=== PATIENT | female | born 1980 | race Caucasian/White ===

== ENCOUNTER 2022-02-22 16:14 | Outpatient (CLI) | payer BC, SELFPAY ==
--- OUTSIDE RECORDS SUMMARY | 2022-02-22 16:19 | XMS_ITS ---
:1980 Author Care Team Providers Name Role Phone NAKUL CURRY MD Primary Care Provider [phone] Allergies Code Code System Name Reaction Severity Status Onset NKDA ? Medications Name Status Start Date Stop Date ? ? compounded medication Completed ? 01/05/2020 5mg Valium compounded as a suppository 1 Supp per vagina QHS at bedtime compounded medication Completed ? 01/05/2020 5mg Valium compounded as a suppository 1 Supp per vagina QHS at bedtime escitalopram 10 mg tablet Active ? Not av ailable lorazepam 0.5 mg tablet Completed ? 11/19/19 20 mirtazapine 7.5 mg tablet Active ? Not av ailable nitrofurantoin monohydrate/macrocrystals 100 mg capsule Complete d ? 11/19/2019 sertraline 50 mg tablet Completed ? 11/19/19 20 Problems None recorded. Procedures Date Name Performed by ? 02/06/2010 Colonoscopy Information not avai lable ? Breast Procedure Information not avai lable ? Extraction of [place] Tooth Information n ot available ? Tubal Ligation Information not avai lable ? Section Information not avai lable 12/09/2019 CT, Urogram [facility] [address] [facility] [address] [place] [address] (Work Place) Notes: Flex sig, remove anal fissure Results Lab Results Date Name Specimen Result Interpretation Description Value Range Status Address ? 01/05/2020 Urinalysis, UR ? Color-status yellow yellow F inal [place] [facility]: [address] [address], [place] ? ? UR ? Clarity-stat clear clear Final [place] [facility]: [address] [facility] [address], [place] ? ? UR ? Glucose-stat negative negative Final [facility] mg/dL mg/dL [facility]: [address] [facility] [address], [place] ? ? UR ? Bilirubin-ur negative negative Final [facility]: [address] [address], [place] ? ? UR ABNORMAL Ketones-stat 15 mg/dL negative Suellen l [place] us mg/dL [facility]: [address] [address], [place] ? ? UR ? SG-status >=1.030 1.00-1.03 Final [facility]: [address] [address], [place] ? ? UR ? pH-status 7.0 5.00-8.00 Final Min [facility]: [address] [address], [place] ? ? UR ? Protein-stat negative negative Final [place] us mg/dL mg/dL [facility]: [address] [address], [place] ? ? UR ? Urobilinogen 0.2 0.2 Final [place] -status E.U./dL E.U./dL Urology - E.U./dL [facility]: [address] [address], [place] ? ? UR ? Nitrites-sta negative negative Final [facility]: [address] ? ? UR ABNORMAL Blood-urine small negative Final [place] [facility]: [address] ? ? UR ? Leuko-status negative negative Final [place] [facility]: [address] [address], [place] ? ? UR ? Specimen voided ? Final [place] [facility]: [address] ? ? UR ? Performed by latrice Mckeon ? Final [facility]: [address] 12/08/2019 Urinalysis, Urine ? Color-status yellow yellow F inal [place] Dipstick [facility]: [address] ? ? Urine ? Clarity-stat clear clear Final Min [facility]: [address] ? ? Urine ? Glucose-stat negative negative Final [place] us mg/dL mg/dL [facility]: [address] [address], [place] ? ? Urine ? Bilirubin-ur negative negative Final [facility]: [address] [address], [place] ? ? Urine ABNORMAL Ketones-stat 80 mg/dL negative Suellen l [place] us mg/dL [facility]: [address] [address], [place] ? ? Urine ? SG-status >=1.030 1.00-1.03 Final [facility] [address] [address], [place] ? ? Urine ? pH-status 6.5 5.00-8.00 Final [facility] [address] [address], [place] ? ? Urine ? Protein-stat negative negative Final [place] us mg/dL mg/dL [facility] [address] [address], [place] ? ? Urine ? Urobilinogen 0.2 0.2 Final [place] -status E.U./dL E.U./dL Urology - E.U./dL [place] [facility]: [address] [address], [place] ? ? Urine ? Nitrites-sta negative negative Final [facility] [address] [address], [place] ? ? Urine ABNORMAL Blood-urine small negative Final [place] [facility] [address] [address], [place] ? ? Urine ? Leuko-status negative negative Final [place] [facility] [address] [address], [place] ? ? Urine ? Specimen voided ? Final [place] [facility]: [address] [address], [place] ? ? Urine ? Performed by latrice Mckeon ? Final [facility] [address] Past Encounters None recorded. Social History Tobacco Smoking Status Never Smoker Vaccine List None recorded. Plan of Care Reminders Provider Appointments None recorded. ? ? Lab None recorded. ? ? Referral None recorded. ? ? Procedures None recorded. ? ? Surgeries None recorded. ? ? Imaging None recorded. ? ? Vitals 01/05/2020 11:00AM CYSTO-15 Height Weight BMI 5 ft 4 in 135 lbs 23.2 kg/m2 12/08/2019 02:45PM ESTABLISHED 15 Height Weight BMI 5 ft 4 in 135 lbs 23.2 kg/m2 11/19/2019 09:35AM NEW VIDEO VISIT 20 Height Weight BMI 5 ft 4 in 135 lbs 23.2 kg/m2
--- OUTSIDE RECORDS SUMMARY | 2022-02-22 16:19 | XMS_ITS ---
:1980 Author Care Team Providers Name Role Phone Cathy King Primary Care Provider Unavailable Allergies Code Code System Name Reaction Severity Status Onset NKDA ? Medications Name Status Start Date Stop Date ? ? cyclobenzaprine 10 mg tablet Active ? Not available TAKE 1 TABLET BY MOUTH THREE TIMES DAILY NEEDED diazepam 5 mg tablet Active ? Not availab le TAKE ONE TO TWO TABLETS BY MOUTH PRIOR TO MRI escitalopram 10 mg tablet Completed ? 2019 lorazepam 0.5 mg tablet Completed ? 01/28/20 20 methylprednisolone 4 mg tablets in a dose pack Active ? Not available FOLLOW PACKAGE DIRECTIONS mirtazapine 7.5 mg tablet Completed ? 2019 nitrofurantoin monohydrate/macrocrystals 100 mg capsule Complete d ? 01/28/2020 sertraline 50 mg tablet Active ? Not avai lable TAKE 1 TABLET BY MOUTH EVERY MORNING Problems Name Status Onset Date Source ? Stress Active 01/28/2020 ? Chronic Tension-type Headache Active 01/28/2020 ? Chronic Ulcerative Proctitis Active 01/28/2020 ? Procedures Date Name Performed by ? 04/23/2017 Delivery Information not avai lable 03/25/2011 Breast Augmentation W/implt Information not available 04/16/2007 Delivery Information not avai lable Results Lab Results Date Name Specimen Result Interpretation Description Value Range Status Address ? 02/09/2021 Lipid Panel, Above Cholesterol, 202 100-199 Final [facility]: 8490 Serum High Total mg/dL mg/dL [address] Normal [address], [place] ? ? ? Triglycerides 66 0-149 Final [facility]: 8490 mg/dL mg/dL [address], [place] ? ? ? HDL 99 >39 Final [facility]: 8 490 Cholesterol mg/dL mg/dL [address], [place] ? ? ? VLDL 12 5-40 Final [facility]: 8 490 Cholesterol mg/dL mg/dL [address], [place] ? ? ? LDL Chol Calc 91 0-99 Final [facility]: 8490 (Nih) mg/dL mg/dL [address], [place] ? ? ? 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 ? ? T. chol/HDL 2.0 0.0-4.4 Final Lab [facility]: 8490 Ratio ratio ratio [address], [place] 02/09/2021 HbA1C ? Hemoglobin 5.3 % 4.8-5.6 Final [facility]: 8490 (Hemoglobin a1C % Bernard [address] a1C), Blood 100, [place] 01/20/2019 Chol+hdl-221 ? Cholesterol, 181 100-199 Final [facility]: 8490 069-U Total mg/dL mg/dL [address], [place] ? ? ? HDL 68 >39 Final [facility]: 8 490 Cholesterol mg/dL mg/dL [address], [place] ? ? ? T. chol/HDL 2.7 0.0-4.4 Final Lab [facility]: 8490 Ratio ratio ratio [address], [place] 01/20/2019 HbA1C ? Hemoglobin 5.1 % 4.8-5.6 Final [facility]: 8490 (Hemoglobin a1C % [address] a1C), Blood [facility], [place] 01/21/2018 Lipid Panel, ? Cholesterol, 176 100-199 Final [facility]: 8490 Serum Total mg/dL mg/dL [address], [place] ? ? ? Triglycerides 70 0-149 Final [facility]: 8490 mg/dL mg/dL [address], [place] ? ? ? HDL 71 >39 Final [facility]: 8 490 Cholesterol mg/dL mg/dL [address], [place] ? ? ? VLDL 14 5-40 Final [facility]: 8 490 Cholesterol mg/dL mg/dL [address], [place] ? ? ? LDL 91 0-99 Final [facility]: 8 490 Cholesterol mg/dL mg/dL [address]c [address], [place] ? ? ? 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 ? ? LDL/HDL Ratio 1.3 0.0-3.2 Final [facility]: [address], [place] 01/21/2018 HbA1C ? Hemoglobin 5.0 % 4.8-5.6 Final [facility]: 8490 (Hemoglobin a1C % [address] a1C), Blood 100, [place] 01/30/2017 LDL, Serum Above LDL Chol. 170 0-99 Final [facility]: 6370 High (Direct) mg/dL mg/dL [address], Normal [place] ? ? ? 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 Hemoglobin 5.3 % 4.8-5.6 [place] [address] - a1C a1C % [facility] Backfills: [place] 01/18/2016 LDL, Direct, ? LDL Chol. 94 0-99 [place] [address] - Serum (Direct) mg/dL mg/dL [facility] Backfills: [place] ? ? ? 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 Social History Tobacco Smoking Status Never Smoker Vaccine List Vaccine Type influenza, injectable, quadrivalent 01/21/2018 01/11/2020 Tdap 03/25/2016 Plan of Care Reminders Provider Appointments None recorded. ? ? Lab None recorded. ? ? Referral None recorded. ? ? Procedures None recorded. ? ? Surgeries None recorded. ? ? Imaging None recorded. ? ? Vitals 02/09/2021 11:30AM InPerson; Biometric Screen Height Weight BMI Blood Pressure 63 in 138 lbs 24.4 kg/m2 162/98 mm[Hg] 01/11/2020 08:00AM InPerson; Biometric Screen Height Weight BMI Blood Pressure 65 in 137 lbs 22.8 kg/m2 108/60 mm[Hg]
--- OUTSIDE RECORDS SUMMARY | 2022-02-22 16:19 | XMS_ITS | Clinical Summary ---
:1980 Author Organization [employer] [facility] [place] [address] Care Team Providers Name Role Phone Franca [facility] Primary Care Provider [phone] Allergies No known active allergies Medications Medication Sig Dispensed Refills Start Date End Date Status hydrOXYzine HCL Take 1-2 Tablets 30 Tablet 2 05/22/2021 Active (ATARAX) 25 mg (25-50 mg) by tabletIndications: mouth at bedtime Stress, Sleep if needed for difficulties Anxiety (and sleep). venlafaxine (EFFEXOR Take 1 Capsule 30 Capsule 0 01/18/2022 Active XR) 75 mg cp24 (75 mg) by mouth Extended-Release once daily with a capsuleIndications: meal. Stress Active Problems Problem Noted Date Chronic ulcerative proctitis without complications Sleep difficulties 05/22/2021 Stress 07/01/2019 Relational problem 08/20/2014 Health Maintenance Overview: Last pap 09/909 normal , cholesterol and FG were normal in 09/30, Tdap on 10/04/08, Resolved Problems Problem Noted Date Resolved Date Post-viral cough syndrome 05/11/2013 02/09/2014 Chronic tension headaches 04/02/2011 05/30/2015 Anal fissure 11/22/2008 10/07/2009 Overview: Since 2005 Oral ulcer 11/22/2008 08/08/2011 Overview: Chronic recurrent, biopsy in 08/31 was be nign, negative for herpes virus. Encounters Date Type Specialty Care Team Description 01/16/2022 Refill Rio Mayes PA Refil l Request (Venlafaxine/) from Last 3 Months Immunizations Name Administration Dates Next Due COVID-19 vaccine (Moderna 09/12/2020, 08/12/2020 100mcg/0.5mL) PF, MDV COVID-19 vaccine (Nubimetrics-MeijobNTBumble Beez 03/22/2021 30mcg/0.3mL) PF, MDV Influenza, IIV3 (Age >=3 years) 01/01/2009 Influenza, IIV4 12/26/2020, 01/11/2020, 01/23/2019, 12/26/2018 (Deferred: Patient Refused), 12/31/2016 Influenza,LAIV4 Live Intranasal 01/01/2013, 11/22/2010 (Flumist) Td (Age >=7 Years) 09/23/1995 Tdap 2017, 03/25/2016, 10/04/2008 Family History Medical History Relation Name Comments Good Health Daughter Cancer Father sinu-nasal SCC Cancer Maternal Grandmother esophageal cancer Heart Disease Maternal Grandmother fluid aroun d the heart Diabetes Mother type 2, HTN Suicidality Paternal Grandfather Good Health Sister 1 Susana Good Health Sister 2 Heidy Good Health Son 1 Edson Other Son 2 Varinder Beckwidth Weidma nn syndrome Relation Name Status Comments Daughter Alive Father Alive Maternal Grandfather Maternal Grandmother Mother Alive Paternal Grandfather Paternal Grandmother Alive Sister 1 Susana Sister 2 Heidy Son 1 Edson Alive Son 2 Varinder Alive Social History Tobacco Use Types Packs/Day Years Used Date Never Smoker Smokeless Tobacco: Never Used Alcohol Use Standard Drinks/Week Comments Yes 0 (1 standard drink = 0.6 oz pure alcoho l) Occasional Alcohol Habits Answer Date Recorded How often do you have a drink containing alcohol? Not asked How many drinks containing alcohol do you have on a typical Not asked day when you are drinking? How often do you have six or more drinks on one occasion? 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 Temperature 36.8 ??C (98.2 ??F) 07/18/2021 2:54 PM CDT Respiratory Rate 18 09/28/2018 11:05 AM CDT Oxygen Saturation 99% 01/21/2019 12:40 PM CDT Inhaled Oxygen Concentration - - Weight 63.5 kg (140 lb) 07/18/2021 2:54 PM CDT Height 165.1 cm (5' 5) 07/18/2021 2:54 PM CDT Body Mass Index 23.3 07/18/2021 2:54 PM CDT Plan of Treatment Health Maintenance Due Date Last Done Comments HIV for age 15-65 1996 Hepatitis C screening for age 1203/21/1999 18-79 COVID-19 vaccine series (4 - 05/17/2021 03/22/2021, 021, Booster for Moderna series) 08/12/2020 Influenza for age 9-49 11/23/2021 12/26/2020, 01/11/2020, 01/23/2019, Additional history exists Depression screening for age 12+ 05/02/2022 05/02/2021, 07/2020, 05/27/2019, Additional history exists BMI (ht and wt on same day) for 07/18/2022 07/18/2021, 02/10/2021, age 18+ 05/27/2020, Additional history exists Pap test for age 21-65 12/20/2022 12/21/2019, 12/21/2019, 06/13/2018, Additional history exists Tetanus booster 2027 2017, 03/25/2016, 10/04/2008, Additional history exists Tdap Completed 2017, 03/25/2016, 10/04/2008 Results Not on filefrom Last 3 Months Insurance Payer Benefit Plan / Subscriber ID Effective Dates Phone Addre ss Type Group BLUE CROSS BLUE CROSS OF [id number] 2019-Present [address] [address] [place] [address] Care Teams Bench Technician Relationship Specialty Start Date End Date [facility], [facility] PCP - General 05/30/15 [address] [place] [address]
[2022-02-22 22:40] LABS: Hepatitis B Surface Antigen* Negative (Negative)
[2022-02-22 22:48] LABS: HIV 1/2/P24 Combo Screen* Negative (Negative)
[2022-02-22 22:57] LABS: Hepatitis C Virus Antibody* Negative (Negative)
[2022-02-23 03:50] LABS: Chlamydia DNA Amplified* NOT DETECTED (No Detected); GC DNA Amplified* NOT DETECTED (No Detected)
== END 2022-02-22 16:15 | disposition home or self-care (01) ==
PROVIDERS: Visit Provider Registered Nurse
DX: Z01.419 Encounter for gynecological examination (general) (routine) without abnormal findings (principal); R63.5 Abnormal weight gain; R35.0 Frequency of micturition; Z11.3 Encounter for screening for infections with a predominantly sexual mode of transmission; Z11.4 Encounter for screening for human immunodeficiency virus [HIV]
CPT/HCPCS: 86703; 86803; 87086; 87340; 87491; 87591

== ENCOUNTER 2022-02-27 08:03 | Outpatient (CLI) | payer BC, SELFPAY ==
--- OUTSIDE RECORDS SUMMARY | 2022-02-27 13:01 | XMS_ITS ---
:1980 Author Care Team Providers Name Role Phone NAKUL CURRY MD Primary Care Provider [phone] Allergies Code Code System Name Reaction Severity [...] Information not avai lable ? Extraction of [place] Tooth Information n ot available ? Tubal Ligation Information not avai lable ? Section Information not avai lable 12/09/2019 CT, Urogram [facility] [address] [facility] [address] [place] [address] (Work Place) Notes: Flex sig, remove anal fissure Results Lab Results Date Name Specimen Result Interpretation Description Value Range Status Address ? 01/05/2020 Urinalysis, UR ? Color-status yellow yellow F inal [place] [facility]: [address] [address], [place] ? ? UR ? Clarity-stat clear clear Final [place] [facility]: [address] [facility] [address], [place] ? ? UR ? Glucose-stat negative negative Final [facility] mg/dL mg/dL [facility]: [address] [facility] [address], [place] ? ? UR ? Bilirubin-ur negative negative Final [facility]: [address] [address], [place] ? ? UR ABNORMAL Ketones-stat 15 mg/dL negative Suellen l [place] us mg/dL [facility]: [address] [address], [place] ? ? UR ? SG-status >=1.030 1.00-1.03 Final [facility]: [address] [address], [place] ? ? UR ? pH-status 7.0 5.00-8.00 Final Min [facility]: [address] [address], [place] ? ? UR ? Protein-stat negative negative Final [place] us mg/dL mg/dL [facility]: [address] [address], [place] ? ? UR ? Urobilinogen 0.2 0.2 Final [place] -status E.U./dL E.U./dL Urology - E.U./dL [facility]: [address] [address], [place] ? ? UR ? Nitrites-sta negative negative Final [facility]: [address] ? ? UR ABNORMAL Blood-urine small negative Final [place] [facility]: [address] ? ? UR ? Leuko-status negative negative Final [place] [facility]: [address] [address], [place] ? ? UR ? Specimen voided ? Final [place] [facility]: [address] ? ? UR ? Performed by latrice Mckeon ? Final [facility]: [address] 12/08/2019 Urinalysis, Urine ? Color-status yellow yellow F inal [place] Dipstick [facility]: [address] ? ? Urine ? Clarity-stat clear clear Final Min [facility] - [facility]: [address] ? ? Urine ? Glucose-stat negative negative Final [place] us mg/dL mg/dL [facility]: [address] [address], [place] ? ? Urine ? Bilirubin-ur negative negative Final [facility]: [address] [address], [place] ? ? Urine ABNORMAL Ketones-stat 80 mg/dL negative Suellen l [place] us mg/dL [facility]: [address] [address], [place] ? ? Urine ? SG-status >=1.030 1.00-1.03 Final [facility] [address] [address], [place] ? ? Urine ? pH-status 6.5 5.00-8.00 Final [facility] [address] [address], [place] ? ? Urine ? Protein-stat negative negative Final [place] us mg/dL mg/dL [facility] [address] [address], [place] ? ? Urine ? Urobilinogen 0.2 0.2 Final [place] -status E.U./dL E.U./dL Urology - E.U./dL [place] [facility]: [address] [address], [place] ? ? Urine ? Nitrites-sta negative negative Final [facility]: [address] [address], [place] ? ? Urine ABNORMAL Blood-urine small negative Final [place] [facility]: [address] [address], [place] ? ? Urine ? Leuko-status negative negative Final [place] [facility] [address] [address], [place] ? ? Urine ? Specimen voided ? Final [place] [facility]: [address] [address], [place] ? ? Urine ? Performed by latrice Mckeon ? Final [facility] [address] Past Encounters None recorded. Social History [...]
--- OUTSIDE RECORDS SUMMARY | 2022-02-27 13:01 | XMS_ITS ---
[...] [facility]: 8490 Serum High Total mg/dL mg/dL [address] Normal [address], [place] ? ? ? Triglycerides 66 0-149 Final [facility]: 8490 mg/dL mg/dL [address], [place] ? ? ? HDL 99 >39 Final [facility]: 8 490 Cholesterol mg/dL mg/dL [address], [place] ? ? ? VLDL 12 5-40 Final [facility]: 8 490 Cholesterol mg/dL mg/dL [address], [place] ? ? ? LDL Chol Calc 91 0-99 Final [facility]: 8490 (Nih) mg/dL mg/dL [address], [place] ? ? ? 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 Cancelled [facility]: [address], [place] ? ? ? T. chol/HDL 2.0 0.0-4.4 Final Lab [facility]: 8490 Ratio ratio ratio [address], [place] 02/09/2021 HbA1C ? Hemoglobin 5.3 % 4.8-5.6 Final [facility]: 8490 (Hemoglobin a1C % [address] a1C), Blood 100, [place] 01/20/2019 Chol+hdl-221 ? Cholesterol, 181 100-199 Final [facility]: 8490 069-U Total mg/dL mg/dL [address], [place] ? ? ? HDL 68 >39 Final [facility]: 8 490 Cholesterol mg/dL mg/dL [facility], [address], [place] ? ? ? T. chol/HDL 2.7 0.0-4.4 Final Lab [facility]: 8490 Ratio ratio ratio [address], [place] 01/20/2019 HbA1C ? Hemoglobin 5.1 % 4.8-5.6 Final [facility]: 8490 (Hemoglobin a1C % [address] a1C), Blood [facility], [place] 01/21/2018 Lipid Panel, ? Cholesterol, 176 100-199 Final [facility]: 8490 Serum Total mg/dL mg/dL [address], [place] ? ? ? Triglycerides 70 0-149 Final [facility]: 8490 mg/dL mg/dL [address], [place] ? ? ? HDL 71 >39 Final [facility]: 8 490 Cholesterol mg/dL mg/dL [facility], [address], [place] ? ? ? VLDL 14 5-40 Final [facility]: 8 490 Cholesterol mg/dL mg/dL [facility], [address], [place] ? ? ? LDL 91 0-99 Final [facility]: 8 490 Cholesterol mg/dL mg/dL [facility], [address], [place] ? ? ? 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 Cancelled [facility]: [address], [place] ? ? ? LDL/HDL Ratio 1.3 0.0-3.2 Final [facility]: [address], [place] 01/21/2018 HbA1C ? Hemoglobin 5.0 % 4.8-5.6 Final [facility]: 8490 (Hemoglobin a1C % [address] a1C), Blood 100, [place] 01/30/2017 LDL, Serum Above LDL Chol. 170 0-99 Final [facility]: 6370 High (Direct) mg/dL mg/dL [address], Normal [place] ? ? ? 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 Cancelled [facility]: [address], [place] 01/30/2017 HbA1C Below Hemoglobin 4.6 % 4.8-5.6 Final [facility]: 6370 (Hemoglobin Low a1C % [address], a1C), Blood Normal [place] 01/18/2016 Hemoglobin ? Hemoglobin 5.3 % 4.8-5[place] [address] - a1C a1C % [facility] Backfills: [place] 01/18/2016 LDL, Direct, ? LDL Chol. 94 0-99 [place] [address] - Serum (Direct) mg/dL mg/dL [facility] Backfills: [place] ? ? ? 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 Cancelled 1494 0 - [facility] Backfills: [place] Past Encounters Encounter Date Diagnosis Provider 02/09/2021 Adult Health Examination SUZE Barrientos: [address] , [place] [address], Ph. Social History Tobacco Smoking Status Never [...]
--- OUTSIDE RECORDS SUMMARY | 2022-02-27 13:01 | XMS_ITS | Clinical Summary ---
:1980 Author Organization [facility] [place] [address] Care Team Providers Name Role Phone Franca [facility] Primary Care Provider [phone] Allergies No known active allergies Medications Medication [...] Encounters Date Type Specialty Care Team Description 02/23/2022 Lab Requisition Kate Oliver, JOHN 01/16/2022 Refill Rio Mayes PA Refil l Request (Venlafaxine/) from Last 3 Months Immunizations Name Administration Dates Next Due COVID-19 vaccine (Moderna 09/12/2020, 08/12/2020 100mcg/0.5mL) PF, MDV COVID-19 vaccine (RollSale 03/22/2021 30mcg/0.3mL) PF, MDV Influenza, IIV3 (Age [...] Name Clin Labor 09/09 Term F Vivien /2005 ng Delivery Location: [place] 04/16/2007 Term M Living Delivery Location: [place] Last Filed Vital Signs Vital Sign Reading Time Taken Comments Blood Pressure 102/64 07/18/2021 2:54 PM CDT Pulse 71 05/02/2021 3:49 PM [employer] Temperature 36.8 ??C (98.2 ??F) 07/18/2021 2:54 [...] wt on same day) for 07/18/2022 07/18/2021, 02/0 10/2021, age 18+ 05/27/2020, Additional history exists Pap test for age 21-65 12/20/2022 12/21/2019, 12/21/2019, 06/13/2018, Additional history exists Tetanus booster 2027 2017, 03/25/2016, 10/04/2008, Additional history exists Tdap Completed 2017, 03/25/2016, 10/04/2008 Procedures Procedure Name Priority Date/Time Associated Diagnosis Comme nts LAB TRACKING EVENT Routine 02/22/2022 4:03 PM [employer] from Last 3 Months Results LAB TRACKING EVENT (02/22/2022 4:03 PM [employer]) Specimen Anatomical Collection Method Collection Time Receive d Time (Source) Location / / Volume Laterality Other (Other) Client Collect / 02/22/2022 4:03 PM 04/2021 6:12 Unknown [employer] PM [employer] Kate Oliver NP LAB BILL ONLY Performing Organization Address City/State/ZIP Code Phon e Number [facility] [address] [place] [address] LABORATORY-CENTRAL [facility] LABORATORY from Last 3 Months Insurance Payer Benefit Plan / Subscriber ID Effective Dates Phone Addre ss Type Group [employer] [id number] 2019-Present [address] [address] [place] [address] Care Teams Commodity Lead Relationship Specialty Start Date End Date Clin, [facility] PCP - General 05/30/15 [address] [place], [place] [address]
[2022-02-27 13:22] LABS: Chloride* 102 mmol/L (96-114)
[2022-02-27 13:23] LABS: Albumin* 4.6 g/dL (3.3-5.0); Potassium* 4.8 mmol/L (3.6-5.1); Sodium* 138 mmol/L (135-149)
[2022-02-27 13:25] LABS: Creatinine* 0.5 mg/dL (0.5-1.5); Estimated Glomerular Filt Rate 122 ml/min
[2022-02-27 13:26] LABS: Alanine Aminotransferase* 17 U/L (4-35); Alkaline Phosphatase* 42 U/L (40-150); Aspartate Amino Transferase* 27 U/L (12-35); Bilirubin Total* 0.7 mg/dL (0.1-1.5); Blood Urea Nitrogen* 14 mg/dL (5-24); Calcium* 9.2 mg/dL (8.4-10.6); Carbon Dioxide* 28 mmol/L (20-32); Glucose* 87 mg/dL (60-115); Total Protein* 7.3 g/dL (6.0-8.3)
[2022-02-27 13:43] LABS: Vitamin D 25 Hydroxy* 30 ng/mL (30-80)
[2022-02-27 13:57] LABS: TSH With Reflex to FT4* 0.561 uIU/mL (0.270-4.200)
== END 2022-02-27 08:04 | disposition home or self-care (01) ==
PROVIDERS: Visit Provider Nurse Practitioner Family
DX: Z79.899 Other long term (current) drug therapy (principal); F41.9 Anxiety disorder, unspecified
CPT/HCPCS: 80053; 82306; 84443

== ENCOUNTER 2022-07-03 15:44 | Outpatient (CLI) | payer OTHER, BC, SELFPAY ==
--- NOTE | 2022-07-03 14:40 | CRLHL7_ITS ---
For Patients: As a result of the Cures Act, medical imaging exams and procedure reports are released immediately into your electronic medical record. You may view this report before your referring provider. If you have questions, please contact your health care provider. BILATERAL DIGITAL SCREENING MAMMOGRAM WITH COMPUTER-AIDED DETECTION CLINICAL HISTORY: Routine screening exam. COMPARISON: None. TECHNIQUE: Digital mammogram in CC and MLO projections including computer-aided detection (CAD). BREAST COMPOSITION: The breasts are heterogeneously dense, which may obscure small masses. FINDINGS: RIGHT Breast: Clustered punctate microcalcifications in the upper inner breast 4 cm from the nipple. LEFT Breast: No suspicious findings. IMPRESSION: RIGHT breast calcifications. RECOMMENDATIONS: Spot compression magnification views of the calcifications in the RIGHT breast in CC and ML projections. BI-RADS Category 0: Incomplete: Need additional Imaging Evaluation and/or Prior Mammograms for Comparison [facility] will contact the patient for follow-up. A lay language report of this examination will be provided to the patient. Dictated by Luke Zheng MD @ 07/04/2022 10:15:52 AM jj/Dictated by: Luke Zhegn MD @ 07/04/2022 10:15:00 AM (Electronically Signed)
== END 2022-07-03 15:45 | disposition home or self-care (01) ==
LOC: MAMMO 15:50
PROVIDERS: Visit Provider Registered Nurse
DX: Z12.31 Encounter for screening mammogram for malignant neoplasm of breast (principal); R92.1 Mammographic calcification found on diagnostic imaging of breast
CPT/HCPCS: 77063; 77067

== ENCOUNTER 2022-07-09 08:25 | Outpatient (CLI) | payer OTHER, BC, SELFPAY ==
--- NOTE | 2022-07-09 08:45 | CRLHL7_ITS ---
For Patients: As a result of the Cures Act, medical imaging exams and procedure reports are released immediately into your electronic medical record. You may view this report before your referring provider. If you have questions, please contact your health care provider. DIGITAL DIAGNOSTIC RIGHT MAMMOGRAM PERFORMED USING COMPUTER-AIDED DETECTION CLINICAL HISTORY: RIGHT breast calcifications. COMPARISON: 07/03/2022. TECHNIQUE: Digital RIGHT mammogram in three projections. CAD utilized. BREAST COMPOSITION: The breast is heterogeneously dense, which may obscure small masses. FINDINGS: Clustered microcalcifications within the upper inner quadrant RIGHT breast 4 cm from the nipple with incomplete layering noted. Most of the calcifications are punctate with very slight pleomorphism suggested. No associated mass. IMPRESSION: Indeterminate clustered microcalcifications upper inner quadrant RIGHT breast 4 cm from the nipple. RECOMMENDATIONS: Stereotactic biopsy should be considered. Results and recommendations discussed with the patient. BI-RADS Category 4: Suspicious A lay language report of this examination will be provided to the patient. Dictated by Luke Zheng MD @ 07/09/2022 12:16:41 PM sergj/Dictated by: uLke Zheng MD @ 07/09/2022 12:16:00 PM (Electronically Signed)
== END 2022-07-09 08:26 | disposition home or self-care (01) ==
LOC: MAMMO 08:26
PROVIDERS: Visit Provider Registered Nurse
DX: R92.8 Other abnormal and inconclusive findings on diagnostic imaging of breast (principal); R92.0 Mammographic microcalcification found on diagnostic imaging of breast
CPT/HCPCS: 77065

== ENCOUNTER 2022-09-17 12:34 | Outpatient (CLI) | payer OTHER, MEDICAID, SELFPAY ==
--- OUTSIDE RECORDS SUMMARY | 2022-09-18 22:10 | XMS_ITS | Continuity of Care Document ---
Author Name Unknown Organization [facility] Address [address] [address] [place] [address] Phone Care Team Providers Care Stewardesses Teacher Name Role Phone Maya Solano MD Unavailable Unavailable Allergies, Adverse Reactions, Alerts Substance Reaction Status Criticality No Known Allergies Active No Inform ation Medications Medication Instructions Dosage Effective Dates (start - stop) Status Comments Implanon 68 mg subdermal implant - Active hyoscyamine 0.125 mg sublingual tablet take 1 Tablet by Sublingual route every 4 hours as needed 1 Tablet - Active Procedures Procedure Date Offic/outpt E&[facility] [place] Directives Directive Yes / No Effective Date File Name No Information Encounters Encounter Description Practice Location Reason(s) For Visit Diagnoses Date Provider Providers Copied on Encounter [facility], [address] [address], [place], [place], [id number], [phone] [facility] No Information 5 Russ Trejo . [address] [place] [address], [id number] , [place]. [phone] Offic/outpt E&m [facility], [address] [address], [place], [place], [id number], [place] [phone] [facility] GI Symptoms or Concerns (chief complaint) Gastroenteritis 5 Russ Trejo . [address] [place] [address], [id number] , [place]. [phone] Referring Provider: Referral Self. Family History Family Member Type Diagnosis Age At Onset Problem (finding) No family history of Ul cerative colitis Problem (finding) No family history of Co wayne polyps Problem (finding) No family history of Cr ohn's disease Father Problem (finding) Sinus Cancer Mother Problem (finding) diabetes mellitus type 2 Son Problem (finding) Alive and well Sister Problem (finding) Alive and well Daughter Problem (finding) Alive and well Problem (finding) No family history of Ca ncer, rectal Mother Problem (finding) gallbladder disease Problem (finding) No family history of Ca ncer, colon Payers Payer name Insurance type Covered constitution party ID Authoriza tily(s) [facility] [id number] Social History Type Description Quantity Date Captured Comments Alcohol Use Details Unknown Caffeine Use Details Unknown Tobacco Use Status No Information Smoking Status No Information Sex Female Chief Complaint And Reason For Visit No Information Reason For Referral Reason For Referral No Information Plan Of Treatment Date Type Action Status No Information History Of Present Illness Encounter Date Complaint History Of Prese nt Illness GI Symptoms or Concerns This is a 34-year-old woman who presents with ongoing abdominal symptoms after acute diarrheal illness. Symptoms began abruptly on December 02. She was camping the week prior but drank bottled water. She developed severe pain in the epigastrium followed by diarrhea, up to 30 times per day. She had nausea but no vomiting. There was loud borborygmi and a fever to 101.5. She was evaluated in the ER and given IV fluids with antiemetics and Lomotil. Stool studies were negative for bacterial pathogens. C. diff testing was not performed. She had improvement in her diarrhea over time but had difficulty tolerating full meal for almost two weeks. She then presented again for ongoing symptoms on December 13. She responded to antiemetics and did not have an acute abdomen to warrant any imaging at that point. Ultimately, she had a CT scan on December 24, which was unremarkable. She reports that she is having more good days than had. She did awaken four days ago with severe abdominal Functional Status Date Functional Assessmen t No Information Instructions Date Instruction Additional Infor mation We discussed the pot ential for probiotics as a treatment for this condition. She may use hyoscyamine as needed for abdominal cramping and we also discussed antihistamines such as Zantac or Pepcid for upper abdominal symptoms. I will not pursue further evaluation if she continues to improve on her own. If she has worsening symptoms, we discussed potential upper endoscopy and/or colonoscopy. I will have prior records send for my review. We will plan to follow up on an as-needed basis. I advised the diet as tolerated but she may certainly avoid any specific triggers if she identifies them. Related to Gastroenteritis Assessments Type Assessment Date No Information Patient Care Teams Name Effective Dates (start - stop) Status Members No Information
== END 2022-09-17 12:35 | disposition home or self-care (01) ==
LOC: NFLDREF 09-18 22:08
PROVIDERS: PCP Obstetrics & Gynecology; Referring Provider Obstetrics & Gynecology; Visit Provider Obstetrics & Gynecology
DX: R30.9 Painful micturition, unspecified (principal); N89.8 Other specified noninflammatory disorders of vagina; N92.0 Excessive and frequent menstruation with regular cycle
CPT/HCPCS: 87086

== ENCOUNTER 2022-12-13 13:33 | Outpatient (CLI) | payer OTHER, MEDICAID, SELFPAY | END 2022-12-13 13:34 | disposition home or self-care (01) | PROVIDERS: PCP Physician Assistant Medical; Visit Provider Nurse Practitioner Family | DX: N92.0 Excessive and frequent menstruation with regular cycle (principal); R63.5 Abnormal weight gain; Z11.3 Encounter for screening for infections with a predominantly sexual mode of transmission | CPT/HCPCS: 83001; 84443; 84481 ==

== ENCOUNTER 2022-12-25 12:47 | Emergency (ER) | payer OTHER, MEDICAID, SELFPAY ==
[2022-12-25] VITALS (15 sets, daily range): BP systolic 118–146; BP diastolic 74–96; PULSE 70–83; RESP 16; TEMP 36.7; O2SAT 94–100; BMI 22.3
--- NOTE | 2022-12-25 13:08 | CRLHL7_ITS ---
For Patients: As a result of the Century Cures Act, medical imaging exams and procedure reports are released immediately into your electronic medical record. You may view this report before your referring provider. If you have questions, please contact your health care provider. INDICATION: Sudden severe headache. TECHNIQUE: CT head without contrast. COMPARISON: None. FINDINGS: CSF spaces: Within normal limits for age. Brain parenchyma and extra-axial spaces: The fairchild-white differentiation is normal. No sign of mass, hemorrhage, or midline shift. No extra-axial fluid collection. Skull base and calvarium: The visualized paranasal sinuses and mastoid air cells demonstrate no acute or significant findings. The visualized orbits are grossly unremarkable. No skull fractures. IMPRESSION: Unremarkable noncontrast head CT. Please note that all CT scans at this facility use dose modulation, iterative reconstruction, and/or weight-based dosing when appropriate to reduce radiation dose to as low as reasonably achievable. Dictated by Suleman Maki MD @ 12/25/2022 1:58:47 PM (Electronically Signed)
--- NOTE | 2022-12-25 13:30 | ED.HA ---
HPI - Headache General Date Seen: 12/25/22 Chief Complaint: Headache/Migraine Stated Complaint: headache, vomiting, diarrhea Time Seen by Provider: 12/25/22 12:49 Source: patient Mode of arrival: ambulatory Limitations: no limitations History of Present Illness HPI Narrative: Patient is a 42-year-old female with a history of anxiety presenting with a severe headache. She states the symptoms started suddenly at 09:00 and have been getting worse. She has never had headache like this before in her life. Says he initially had blurry vision that has now resolved. Is also having associated nausea and vomiting with 4 episodes of emesis at 11:00. A states the pain is 610 on a 10. She admits to photophobia at this time. He has no history of intracranial hemorrhages or other intracranial abnormalities. Is currently only taking once a test anxiety medication. She is not on any blood thinners. Related Data Previous Rx's Medication Instructions Recorded eszopiclone 1 mg tablet 1 - 3 mg (1 - 3 x 1 mg) PO QHS #63 12/13/22 tabs fluoxetine 20 mg tablet 20 - 60 mg (1 - 3 x 20 mg) PO QDAY 12/13/22 #60 tabs propranolol 40 mg tablet 40 mg PO BID PRN anxiety #60 tabs 12/13/22 ondansetron 4 mg disintegrating 4 mg PO Q6H #20 tabs 12/25/22 tablet Allergies Allergy/AdvReac Type Severity Reaction Status Date / Time No Known Allergies Allergy Unknown Verified 12/25/22 12:54 Review of Systems Status of ROS: Reports: 10 or more systems reviewed and unremarkable except as noted in History and below PFSH [facility] Medical History ADHD ?F90.9 - Attention-deficit hyperactivity disorder, unspecified type (ICD-10) Depression ?F32.A - Depression, unspecified (ICD-10) Panic attacks ?F41.0 - Panic disorder [episodic paroxysmal anxiety] (ICD-10) Insomnia ?G47.00 - Insomnia, unspecified (ICD-10) Medication management ?Z79.899 - Other care home (current) drug therapy (ICD-10) History of vaginal delivery History of cervical dysplasia (2018) ?Z87.410 - Personal history of cervical dysplasia (ICD-10) Surgical History Status post tubal ligation ?Z98.51 - Tubal ligation status (ICD-10) Status post delivery ?Z98.891 - History of uterine scar from previous surgery (ICD-10) History of colposcopy with cervical biopsy (2018) ?Z98.890 - Other specified postprocedural states (ICD-10) History of breast augmentation ?Z98.82 - Breast implant status (ICD-10) History of 2 sections ?Z98.891 - History of uterine scar from previous surgery (ICD-10) Family History Father Family history of cancer of nasal cavity High cholesterol Family/Other Family history of congenital anomaly Mother Diabetes Social History Narrative: Patient's father is still living Patient's mother is still living Patient's sister is still living- one older sister, one younger sister Smoking Status: Never smoker Do you use any of these nicotine containing products: None Second hand tobacco smoke exposure: No How often do you have a drink containing alcohol: 2-4 times a month How many standard drinks containing alcohol do you have on a typical day: 1 or 2 AUDIT-C Alcohol total score: 2 Non-prescribed substance use: denies use Little interest or pleasure in doing things: several days Feeling down, depressed, or hopeless: several days service: No Exam Narrative: Exam Narrative: Const: Well-nourished, Well-developed, in moderate distress Eyes: PERRL, no conjunctival injection, and symmetrical lids HENT: Atraumatic external nose and ears. Moist mucous membranes. Neck: Symmetric, trachea midline, No thyromegaly. CVS: RRR, No murmurs or gallops. Peripheral pulses 2+ and equal in all extremities RESP: Unlabored respiratory effort. Clear to auscultation bilaterally. GI: Nontender/Nondistended, No rebound or guarding. MSK:Extremities w/o deformity, Normal Active ROM Skin: Warm, Dry. No rashes or lesions. Neuro: Normal Muscle tone, No focal neurological deficits. Psych: Awake, Alert, & Oriented x3. Appropriate mood and affect. Const: Vital Signs, click to edit/add: Vital Signs - 24 hr 12/25/22 12:55 12/25/22 13:02 12/25/22 13:03 Temperature 98.1 F Pulse Rate 83 79 Pulse Rate [Pulse Oximeter] 75 Respiratory Rate 16 Blood Pressure 146/96 H Blood Pressure [Le ft Upper Arm] 146/93 H Pulse Oximetry 98 95 96 Oxygen Delivery Me thod Room Air 12/25/22 13:15 12/25/22 13:53 12/25/22 13:57 Temperature Pulse Rate 81 73 Pulse Rate [Pulse Oximeter] Respiratory Rate Blood Pressure 141/87 H Blood Pressure [Le ft Upper Arm] Pulse Oximetry 99 99 Oxygen Delivery Me thod 12/25/22 14:00 12/25/22 14:02 12/25/22 14:15 Temperature Pulse Rate 82 77 82 Pulse Rate [Pulse Oximeter] Respiratory Rate Blood Pressure 143/90 H Blood Pressure [Le ft Upper Arm] Pulse Oximetry 97 95 100 Oxygen Delivery Me thod 12/25/22 14:22 12/25/22 14:30 Temperature Pulse Rate 80 81 Pulse Rate [Pulse Oximeter] Respiratory Rate Blood Pressure 122/82 Blood Pressure [Le ft Upper Arm] Pulse Oximetry 100 100 Oxygen Delivery Me thod Course Vital Signs Vital signs: Initial Vital Signs Temperature 98.1 F 12/25/22 12:55 Temperature Source Temporal Artery Scan 12/25/22 12:55 Pulse Rate 75 12/25/22 12:55 Pulse Rhythm Regular 12/25/22 12:55 Pulse Strength 3+ Normal 12/25/22 12:55 Respiratory Rate 16 12/25/22 12:55 Blood Pressure 146/93 H 12/25/22 12:55 Blood Pressure Mean 110 H 12/25/22 12:55 Blood Pressure Position Supine 12/25/22 12:55 Pulse Oximetry 98 12/25/22 12:55 Oxygen Delivery Method Room Air 12/25/22 12:55 Vital Signs Temperature 98.1 F 12/25/22 12:55 Pulse Rate 75 12/25/22 12:55 Respiratory Rate 16 12/25/22 12:55 Blood Pressure 146/93 H 12/25/22 12:55 Pulse Oximetry 98 12/25/22 12:55 Oxygen Delivery Method Room Air 12/25/22 12:55 Temperature 98.1 F 12/25/22 12:55 Pulse Rate 81 10/03/23 14:30 Respiratory Rate 16 12/25/22 12:55 Blood Pressure 122/82 12/25/22 14:22 Pulse Oximetry 100 12/25/22 14:30 Oxygen Delivery Method Room Air 12/25/22 12:55 MDM - Headache MDM Narrative Medical decision making narrative: Patient is a 42-year-old female presenting to the emergency department for headaches. The headache started suddenly and has severe headache which she describes as the worst headache of her life. To due to this was concern for subarachnoid hemorrhage and was sent immediately to CT scan. I reviewed the scan of her head I did not see any acute acute signs of bleeding. She was then given a migraine cocktail and Toradol. Patient's CT scan returned showing no concerning abnormalities. After the migraine cocktail and Toradol she says his symptoms have completely resolved and she feels back to normal. She has no history of migraines has had no increased stress dose unclear what brought on the symptoms but she is doing well and can be discharged home. She is agreeable to this plan. Imaging Data CT head with contrast: Radiologist's impression: INDICATION: Sudden severe headache. TECHNIQUE: CT head without contrast. COMPARISON: None. FINDINGS: CSF spaces: Within normal limits for age. Brain parenchyma and extra-axial spaces: The fairchild-white differentiation is normal. No sign of mass, hemorrhage, or midline shift. No extra-axial fluid collection. Skull base and calvarium: The visualized paranasal sinuses and mastoid air cells demonstrate no acute or significant findings. The visualized orbits are grossly unremarkable. No skull fractures. IMPRESSION: Unremarkable noncontrast head CT. Please note that all CT scans at this facility use dose modulation, iterative reconstruction, and/or weight-based dosing when appropriate to reduce radiation dose to as low as reasonably achievable. Dictated by Suleman Maki MD @ 12/25/2022 1:58:47 PM Discharge Plan Discharge Clinical Impression: Migraine Qualifiers: Migraine type: unspecified Status migrainosus presence: without status migrainosus Intractability: not intractable Qualified Code(s): G43.909 - Migraine, unspecified, not intractable, without status migrainosus Patient Disposition: Home, Self-Care Condition: Improved Instructions: Migraine Headache (ED) Additional Instructions: Appears you had a migraine. I am not able to see to a prone on the migraine but we did send some nausea medicine to pharmacy. Take Tylenol and ibuprofen for your pain. If symptoms to continue follow-up with the primary care provider. If you develop new or worsening symptoms please return to the emergency department. Prescriptions: New ondansetron 4 mg tablet,disintegrating 4 mg PO Q6H Qty: 20 0RF No Action propranolol 40 mg tablet 40 mg PO BID PRN (Reason: anxiety) Qty: 60 0RF fluoxetine 20 mg tablet 20 - 60 mg PO QDAY Qty: 60 1RF Rx Instructions: take 1 t po qd x 1 wk, then 2 t qd x 2 wk, then 3 t qd for mood, anxiety eszopiclone 1 mg tablet 1 - 3 mg PO QHS Qty: 63 0RF Rx Instructions: take 1 t qhs x 1 wk, then 2 t qhs x 1 wk, then 3 t qhs for insomnia Follow Up/Referrals: Rio Mayes, LORIE [Primary Care Provider] - Stand Alone Forms: Collplant Info Instructions
[2022-12-25] MEDS: KETOROLAC 15 MG/ML inj IVP (13:52)
[2022-12-25] MEDS: METOCLOPRAMIDE HCL 5 MG/ML INJ 10 MG IVP (13:52)
[2022-12-25] MEDS: LACTATED RINGERS 1000 ML 1,000 ML IV (13:52)
[2022-12-25] MEDS: diphenhydrAMINE 50 MG/ML inj 25 MG IVP (13:52)
== END 2022-12-25 15:15 | disposition home or self-care (01) ==
PROVIDERS: Emergency Provider Student in an Organized Health Care Education/Training Program; PCP Physician Assistant Medical
DX: G43.909 Migraine, unspecified, not intractable, without status migrainosus (principal)
CPT/HCPCS: 70450; 96374; 96375; 99283; 99284; J1200; J1885; J2765; J7120

== ENCOUNTER 2022-12-27 10:41 | Outpatient (CLI) | payer OTHER, MEDICAID, SELFPAY | END 2022-12-27 10:42 | disposition home or self-care (01) | LOC: LKVREF 10:42 | PROVIDERS: PCP Physician Assistant Medical; Visit Provider Emergency Medicine | DX: Z01.818 Encounter for other preprocedural examination (principal) | CPT/HCPCS: 80048 ==

== ENCOUNTER 2023-01-08 07:09 | Day surgery (SDC) | payer OTHER, MEDICAID, SELFPAY ==
[2023-01-08] MEDS: LACTATED RINGERS 1000 ML 1,000 ML 100 ML IV (07:15)
[2023-01-08 07:37] LABS: Ur HCG Qualitative* Negative (Negative)
[2023-01-08 07:38] VITALS: BP 119/69; PULSE 59; RESP 16; TEMP 37.1; O2SAT 99
[2023-01-08 07:42] VITALS: BMI 25.2
--- NOTE | 2023-01-08 08:57 | W.PM.GYNPROC ---
Procedure Note Date of procedure: 01/08/23 Pre-op diagnosis: Menorrhagia Post-op diagnosis: same Procedure: Hysteroscopy D&C Ginette endometrial ablation Anesthesia: MAC and local (Paracervical block) Complications: None. Surgeon: Juliane Davis MD Estimated blood loss (mL): 10 Pathology: specimen obtained, sent to pathology (Endometrial curettings) Condition: stable Disposition: same day Findings: Thick endometrial lining. No evidence of polyps or fibroids. Procedure Description: After obtaining informed consent, the patient was taken to the operating room where she received monitored anesthesia care. She was prepared and draped in the normal sterile fashion, in the dorsal lithotomy position. An open-sided bivalve speculum was introduced into the vagina and the cervix visualized. The anterior lip of the cervix was grasped with a single-tooth tenaculum for traction. A paracervical block was then administered using a total of 20 mL of a 50/50 mixture of 0.25% Marcaine and 1% lidocaine plain. The uterus was gently sounded. Sound length was 9 cm. The cervix length was determined to be 4 cm using Hegar dilators, yielding a uterine cavity length of 5 cm. The cervix was gently dilated to a #6 Hegar dilator. A hysteroscope was then advanced under direct visualization through the cervix into the uterine cavity. Sterile normal saline was used as distending medium. The uterine cavity was carefully inspected with the findings noted above. The hysteroscope was then removed. The endometrial lining was then sharply curetted. The Ginette device was then set to a cavity length of 5 cm, inserted through the cervical os into the uterine cavity to the level of the fundus, and deployed. The device was sealed against the cervix. The safety checks were then passed x2 and the 2-minute treatment cycle initiated. Following completion of the treatment cycle, the Ginette device was removed. The hysteroscope was advanced again into the uterine cavity and the uterine cavity inspected. A good ablation was noted from the internal os to fundus and to the cornua bilaterally. Pictures were taken for documentation purposes. The hysteroscope was removed. The tenaculum was removed. All instruments were then removed. The patient tolerated the procedure well. Sponge, lap, needle, and instrument counts reported as correct x2. Toradol 30 mg IV was administered by the PATHOLOGY LABORATORY DIRECTOR. Postop debrief was done which confirmed the procedure done and the pathology specimen to be sent. The patient was taken to the recovery room awake in a stable condition.
[2023-01-08] MEDS: LIDOCAINE 1% MDV 10 ML INJECTION (09:30)
[2023-01-08] MEDS: BUPIVACAINE 0.25% 30 ML 10 ML INJECTION (09:30)
[2023-01-08 09:48] VITALS: BP 93/62; PULSE 60; RESP 16; TEMP 36.6; O2SAT 95
--- NOTE | 2023-01-08 09:49 | W.ANESCHARGE ---
Anesthesia Charges Start Date/Time Anesthesia Start Date: 01/08/23 Anesthesia Start Time: 08:55 Stop Date/Time Anesthesia Stop Date: 01/08/23 Anesthesia Stop Time: 09:48
[2023-01-08 10:05] VITALS: BP 120/60; PULSE 73; RESP 16; O2SAT 100
== END 2023-01-08 10:41 | disposition home or self-care (01) ==
PROVIDERS: PCP Physician Assistant Medical; Visit Provider Obstetrics & Gynecology
PROC: 0UF98ZZ Fragmentation in Uterus, Via Natural or Artificial Opening Endoscopic (ICD-10-PCS; CPT 58563; principal; 2023-01-08 08:30)
DX: N92.0 Excessive and frequent menstruation with regular cycle (principal)
CPT/HCPCS: 58563; 81025; 88305; 952; J0665; J1100; J1885; J2250; J2405; J2704; J3010; J7120

== ENCOUNTER 2023-02-26 14:59 | Outpatient (CLI) | payer OTHER, MEDICAID, SELFPAY | END 2023-02-26 15:00 | disposition home or self-care (01) | PROVIDERS: PCP Physician Assistant Medical; Visit Provider Emergency Medicine | DX: D72.819 Decreased white blood cell count, unspecified (principal); N92.0 Excessive and frequent menstruation with regular cycle | CPT/HCPCS: 82607; 82728; 82746; 84443 ==

== ENCOUNTER 2023-07-15 14:31 | Outpatient (CLI) | payer OTHER, MEDICAID, SELFPAY ==
--- OUTSIDE RECORDS SUMMARY | 2023-07-15 14:34 | XMS_ITS | Clinical Summary ---
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 30 Tablet 2 05/22/2021 Active venlafaxine (EFFEXOR XR) 75 mg cp24 Extended-Release capsuleIndications:St ress Take 1 Capsule (75 mg) by mouth once daily with a meal. 30 Capsule 01/18/2022 Active propranoloL (INDERAL) 40 mg tablet Take 40 mg by mouth. FOR ANXIETY 12/13/2022 Active Active Problems Problem Noted Date Diagnosed Date Chronic ulcerative proctitis without complicatio ns 07/21/2021 Sleep difficulties 05/22/2021 Stress 07/01/2019 Relational problem 08/20/2014 Health Maintenance Overview: Last pap 09/909 normal , cholesterol and FG were normal in 09/30, Tdap on 10/04/08, Resolved Problems Problem Noted Date Diagnosed Date Resolved Date Post-viral cough syndrome 05/11/2013 Chronic tension headaches 04/02/2011 Anal fissure 11/22/2008 10/07/2009 Overview: Since 2005 Oral ulcer 11/22/2008 08/08/2011 Overview: Chronic recurrent, biopsy in 6/09 was benign, negative for herpes virus. Encounters Date Type Department Care Team Description 06/28/2023 Orders Only [facility] [address] [place] [address] Monalisa Whiting PA <No scans attached> 06/27/2023 Orders Only [facility] [address] [place] [address] Monalisa Whiting PA 1 scan: (1-Ord) [facility] 06/21/2023 8:45 AM CDT Office Visit [facility] [address] [place] [address] Monalisa Whiting PA Numbness (In the last couple of months getting X 2 months NUMBNESS IN LT FOREARM/HAND) 06/21/2023 Travel from Last 3 Months Immunizations Name Administration Dates Next Due COVID-19 vaccine (Moderna 100mcg/0.5mL) PF, MDV 09/12/2020,08/12/2020 COVID-19 vaccine (JobConvoBio NTech 30mcg/0.3mL) PF, MDV 03/22/2021 Influenza, IIV3 (Age >=3 years) 01/01/2009 Influenza, IIV4 12/26/2020, 0,01/23/2019, 019(Deferred: Patient Refused),12/31/2016 Influenza,LAIV4 Live Intrana clarisse (Flumist) 01/01/2013,11/22/2010 Td (Age >=7 Years) 09/23/1995 Tdap 2017,03/25/2016,10/04/2008 Family History Medical History Relation Name Comments Good Health Daughter Cancer Father sinu-nasal SCC Cancer Maternal Grandmother esophag eal cancer Heart Disease Maternal Grandmother fluid around the heart Diabetes Mother type 2, HTN Suicidality Paternal Grandfather Good Health Sister 1 Susana Good Health Sister 2 Heidy Good Health Son 1 Esdon Other Son 2 Varinder Beckwidth Weidm sandra syndrome Relation Name Status Comments Daughter Alive Father Alive Maternal Grandfather Maternal Grandmother Mother Alive Paternal Grandfather Paternal Grandmother Sister 1 Susana Sister 2 Heidy Son 1 Edson Alive Son 2 Varinder Alive Social History Tobacco Use Types Packs/Day Years Used Date Smoking Tobacco: Never Smokeless Tobacco: Never Alcohol Use Standard Drinks/Week Comments Yes 0 (1 standard drink = 0.6 oz pur e alcohol) Occasional PHQ-2 Answer Date Recorded PHQ-2 TOTAL SCORE 0 06/21/2023 Social Connections Answer Date Recorded Frequency of Communication with Friends and Fami ly Not on file 03/15/2021 Financial Resource Strain Answer Date R ecorded Difficulty of Paying Living Expenses Not on file 03/15/2021 Difficulty of Paying Living Expenses Not on file 03/15/2021 Sex and Gender Information Value Date Recorded Sex Assigned at Not on file Gender Identity Not on file Sexual Orientation Not on file Obstetrics History Para Term AB IAB SAB Ectopic Multiple Livin g Live Births 2 2 2 0 0 0 0 0 0 2 2 Date Outcome GA Total Labor Labor/2nd/3rd Weight Sex Delivery Anes PTL Shannan A1 A5 Name Cl in 09/09 Term F Vivien ng Delivery Location:[place] 04/16 Term M Vivien ng Delivery Location:[place] Last Filed Vital Signs Vital Sign Reading Time Taken Comments Blood Pressure 110/68 06/21/2023 8:44 AM CDT Pulse 87 06/21/2023 8:44 AM CDT Temperature 36.8 ??C (98.2 ??F) 07/18/2021 2:54 PM CD T Respiratory Rate 18 09/28/2018 11:05 AM CDT Oxygen Saturation 99% 01/21/2019 12:40 PM CDT Inhaled Oxygen Concentration - - Weight 64.1 kg (141 lb 4.8 oz) 06/21/2023 8:44 A M CDT Height 163 cm (5' 4.17) 06/21/2023 8:44 AM CDT Body Mass Index 24.12 06/21/2023 8:44 AM CDT Plan of Treatment Upcoming Encounters Date Type Department Care Team (Late st Contact Info) Description 08/08/2023 1:00 PM CDT Office Visit [facility] [address] [place] [address] Ryder Martinez MD [address] [place] [address] [address] [place] [address] Health Maintenance Due Date Last Done Comments HIV for age 15-65 1996 Hepatitis C screening for age 18-79 1999 COVID-19 vaccine series (24 season) 2022 03/22/2021, 09/12/2020, 08/12/2020 Influenza for age 9-49 11/24/2023 , 01/11/2020, 01/23/2019, Additional history exists BMI (ht and wt on same day) for age 18+ 06/20/2024 06/21/2023, 07/18/2021, 05/02/2021, Additional history exists Depression screening for age 12+ 06/20/2024 06/21/2023, 05/02/2021, 05/27/2020, Additional history exists Pap test for age 21-65 02/22/2025 , 02/22/2022, 12/21/2019, Additional history exists Tetanus booster 2027 2017, 03/2016, 10/04/2008, Additional history exists Tdap Completed 2017, 03/2016, 10/04/2008 Pneumococcal series for age 6-64 Aged Out No longer eligible based on patient's age to complete this topic Procedures Procedure Name Priority Date/Time Associated Diagnosis Comments EMG Routine 06/24/2023 12:00 AM CDT Numbness and tingling in left arm HPV THIN PREP Routine 02/22/2022 4:03 PM TEACHER LEARNING DISABLED from Last 3 Months or Most Recently Relevant to Health Maintenance Results * EMG (06/24/2023 12:00 AM CDT) [facility] * HPV HIGH RISK (02/22/2022 4:03 PM TEACHER LEARNING DISABLED) TYPE 16 Negative Negative 02/27/2022 3:45 PM TEACHER LEARNING DISABLED [facility] TYPE 18 Negative Negative 02/27/2022 3:45 PM TEACHER LEARNING DISABLED [facility] OTHER HIGH RISK TYPES Negative Negative 02/27/2022 3:45 PM TEACHER LEARNING DISABLED [facility] Other (Cervical) 02/22/2022 4:03 PM TEACHER LEARNING DISABLED 02/26/2022 1:06 PM TEACHER LEARNING DISABLED Narrative [facility] - 02/27/2022 3:45 PM TEACHER LEARNING DISABLED HPV types 16, 18, 31, 33, 35, 39, 45, 51, 52, 56, 58, 59, 66 and 68 DNA were undetectable or below the pre-set threshold. Methodology: Chelsea John 4800 HPV Test Kate Oliver NP MICROBIOLOGY [facility] [address] [place] [address], from Last 3 Months or Most Recently Relevant to Health Maintenance Care Teams Stock Worker And Deliverer Relationship Specialty Start Date End Date [facility] [address] [place] [address] PCP - General 05/30/15
--- OUTSIDE RECORDS SUMMARY | 2023-07-15 14:35 | XMS_ITS | Data Portability ---
Author Name Unknown Address [address] [place] [address] Phone [phone] Organization [facility] Address [address] [place] [address] Assessment No assessment recorded. Plan of Treatment Reminders Order Date Submit Date Provider Last Modified By Organization Details Last Modified Time Details Appointments None recorded. Lab urinalysis, dipstick 2019 020 [facility], [address] [facility], [address], [address], 0 09:44:50 urinalysis, dipstick 2019 020 [facility], [address], [address], [place], [address], 0 18:39:05 Referral pelvic floor therapy referral - Please call patient to scheduled Pelvic Floor Physical Therapy. Thank you 2019 020 [email or web address] [facility] [place], [address], [address], [place], [address], 0 16:30:18 Procedures None recorded. Surgeries None recorded. Imaging None recorded. Medication Orders compounded medication 2019 020 [facility] [address] [place], [address], 2 10:17:17 Patient TargetsNo targets recorded. Patient Instructions Encounter Date Encounter Id Patient Instructions Last Modified By Organization Details Last Modified Time 01/05/2020 [id number] Review of chart 6-24 UA micro 3-5 RBC ucx negative HAD MENSES at this shyanne. 1. hx of microhematuria had menses in August; no menses today cysto/CT negative to have yearly ua micro if continues + consider reval in 3-5 yrs if sees blood to call immediately 2. Pelvic floor tension/nocturia-- doing much better hot tub soaks at night stopped vv doing pt given 1 dose of keflex and azo. Not available 01/05/2020 12:45:30 12/08/2019 [id number] Review of chart 6-24 UA micro 3-5 RBC ucx negative HAD MENSES at this shyanne. 1. hx of microhematuria had menses in August; no menses today to have yearly ua micro if continues + consider reval in 3-5 yrs if sees blood to call immediately 2. Pelvic floor tension/nocturia hot tub soaks at night and vaginal valium Not available 12/08/2019 16:46:56 11/19/2019 [id number] needs office wyatt t for exam, possible cysto, and decide about upper tract imaging based on micro UA. Explained that benign microscopic hematuria is likely diagnosis, and if work-up confirmed, this should be reassuring. Also needs pelvic floor muscle assessment. In interim, will try hot tub soaks at night and vaginal valium. Gave her contact info for [facility] [email or web address] Not available 11/19/2019 11:07:50 Reason for Referral Pelvic Floor Therapy Referra l for Female stress incontinence Please call patient to scheduled Pelvic Floor Physical Therapy. Thank you Referring Physician: Yu Galaviz, Urology, Encounter Date: 12/08/2019 Results Created Date Observation Date Name Description Value Unit Range Abnormal Flag LastModifiedBy Organization Detail LastModifiedTime 12/08/19 20 12/08/2019 urina lysis , dipst ick color-status yellow yellow Not Available [facility] [address], [place], [address], 12/10/2019 18:39:05 12/08/19 20 12/08/2019 urina lysis , dipst ick clarity-stat us clear clear Not Available [facility] [address] [facility] [address], [place], [address], 12/10/2019 18:39:05 12/08/19 20 12/08/2019 urina lysis , dipst ick glucose-stat us negati ve mg/dL negati ve Not Available [facility] [address] [place] [address] [address], [place], [address], 12/10/2019 18:39:05 12/08/19 20 12/08/2019 urina lysis , dipst ick bilirubin-ur ine negati ve negati ve Not Available [facility] [address] [place] [address] [address], [place], [address], 12/10/2019 18:39:05 12/08/19 20 12/08/2019 urina lysis , dipst ick ketones-stat us 80 mg/dL negati ve abnormal Not Available [facility] [address] [place] [address] [address], [place], [address], 12/10/2019 18:39:05 12/08/19 20 12/08/2019 urina lysis , dipst ick SG-status >=1.03 0 1.00-1 .03 Not Available [facility] [address] [place] [address] [address], [place], [address], 12/10/2019 18:39:05 12/08/1912/08/2019 urina lysis , dipst ick pH-status 6.5 5.00-8 .00 Not Available [facility] [address] [place] [address] [address], [place], [address], 12/10/2019 18:39:05 12/08/19 20 12/08/2019 urina lysis , dipst ick protein-stat us negati ve mg/dL negati ve Not Available [facility] [address] [place] [address] [address], [place], [address], 12/10/2019 18:39:05 12/08/19 20 12/08/2019 urina lysis , dipst ick urobilinogen -status 0.2 E.U./ dL 0.2 E.U./d L Not Available [facility] [address] [place] [address] [address], [place], [address], 12/10/2019 18:39:05 12/08/19 20 12/08/2019 urina lysis , dipst ick nitrites-sta tus negati ve negati ve Not Available [facility] [address] [place] [address] [address], [place], [address], 12/10/2019 18:39:05 12/08/19 20 12/08/2019 urina lysis , dipst ick blood-urine small negati ve abnormal Not Available [facility] [address] [place] [address] [address], [place], [address], 12/10/2019 18:39:05 12/08/19 20 12/08/2019 urina lysis , dipst ick leuko-status negati ve negati ve Not Available [facility] [address] [place] [address] [address], [place], [address], 12/10/2019 18:39:05 12/08/19 20 12/08/2019 urina lysis , dipst ick specimen type voided Not Available [facility] [address] [place] [address] [address], [place], [address], 12/10/2019 18:39:05 12/08/19 20 12/08/2019 urina lysis , dipst ick performed by jenny Mckeon Not Available [facility] [address] [place] [address] [address], [place], [address], 12/10/2019 18:39:05 01/05/20 20 01/05/2020 urina lysis , dipst ick color-status yellow yellow Not Available [facility] [address] [place] [address] [address], [place], [address], 01/06/2020 09:44:50 01/05/2001/05/2020 urina lysis , dipst ick clarity-stat us clear clear Not Available [facility] [address] [place] [address] [address], [place], [address], 01/06/2020 09:44:50 01/05/2001/05/2020 urina lysis , dipst ick glucose-stat us negati ve mg/dL negati ve Not Available [facility] [address] [place] [address] [address], [place], [address], 01/06/2020 09:44:50 01/05/2001/05/2020 urina lysis , dipst ick bilirubin-ur ine negati ve negati ve Not Available [facility] [address] [place] [address] [address], [place], [address], 01/06/2020 09:44:50 01/05/2001/05/2020 urina lysis , dipst ick ketones-stat us 15 mg/dL negati ve abnormal Not Available [facility] [address] [place] [address] [address], [place], [address], 01/06/2020 09:44:50 01/05/2001/05/2020 urina lysis , dipst ick SG-status >=1.03 0 1.00-1 .03 Not Available [facility] [address] [place] [address] [address], [place], [address], 01/06/2020 09:44:50 01/05/2001/05/2020 urina lysis , dipst ick pH-status 7.0 5.00-8 .00 Not Available [facility] [address] [place] [address] [address], [place], [address], 01/06/2020 09:44:50 01/05/2001/05/2020 urina lysis , dipst ick protein-stat us negati ve mg/dL negati ve Not Available [facility] [address] [facility] [address], [place], [address], 01/06/2020 09:44:50 01/05/2001/05/2020 urina lysis , dipst ick urobilinogen -status 0.2 E.U./ dL 0.2 E.U./d L Not Available [facility] [address] [facility] [address], [place], [address], 01/06/2020 09:44:50 01/05/2001/05/2020 urina lysis , dipst ick nitrites-sta tus negati ve negati ve Not Available [facility] [address] [place] [address], [place], [address], 01/06/2020 09:44:50 01/05/2001/05/2020 urina lysis , dipst ick blood-urine small negati ve abnormal Not Available [facility] [address] [facility] [address], [place], [address], 01/06/2020 09:44:50 01/05/2001/05/2020 urina lysis , dipst ick leuko-status negati ve negati ve Not Available [facility] [address] [facility] [address], [place], [address], 01/06/2020 09:44:50 01/05/2001/05/2020 urina lysis , dipst ick specimen type voided Not Available [facility] [address] [facility] [facility] [address], [place], [address], 01/06/2020 09:44:50 01/05/2001/05/2020 urina lysis , dipst ick performed by jenny Mckeon Not Available [facility] [address] [facility] [facility] [address], [place], [address], 01/06/2020 09:44:50 12/14/1912/11/2019 CT ABD wo&W & pelv wo&W (no oral cont) No observ ation record ed. [email or web address] [facility] [address], [place], [address], 01/05/2020 12:45:36 Result Notes None recorded. Procedures Surgical History Date Name Laterality Status Provider Name and Address Organization Details Recorded Time 0 Cystoscopy- female completed Yu Galaviz MD [address] [place] [address],[address], [address], [facility] 01/05/2020 12:44:56 0 In and Out Catheterization - female completed Yu Galaviz MD [address] [place] [address],[address], [address], [facility] 12/08/2019 16:53:04 0 Colonoscopy completed Julissa Franco null, [facility] 12/02/2019 10:39:18 section completed Julissa Salvador null, [facility] 12/02/2019 10:39:26 Tubal Ligation completed Julissa Rubalcava n null, [facility] 12/02/2019 10:39:38 extraction of wisdom tooth completed Julissa Salvador null, [facility] 12/02/2019 10:39:46 breast procedure completed Julissa Salvador somers, [facility] 12/02/2019 10:40:02 Imaging Results Imaging Date Name Status LastModified by Organiz ation Details LastModified Time 12/11/2019 CT ABD wo&W & pelv wo&W (no oral cont) completed [email or web address] [facility] [address], [place], [address], 01/05/2020 12:45:36 Procedure Notes None recorded. Medical Equipment None Reported. Allergies No known drug allergies Medications Name Sig Start Date Stop Date Status Note LastModified by Organization Details LastModified Time compounded medication 1 Supp per vagina QHS at bedtime 01/04 completed Not Available Not Available Not Available compounded medication 1 Supp per vagina QHS at bedtime 01/04 completed Not Available Not Available Not Available lorazepam 0.5 mg tablet 11/18 completed Not Available Not Available Not Available sertraline 50 mg tablet 11/18 completed Not Available Not Available Not Available escitalopram 10 mg tablet active Not Available Not Available Not Available mirtazapine 7.5 mg tablet active Not Available Not Available Not Available nitrofuranto in monohydrate/ macrocrystal s 100 mg capsule 11/18 completed Not Available Not Available Not Available Vitals Date Recorded Body height Body mass index (BMI) Body weight Provider Name and Address Organization Details Last Updated DateTime 12/08/2019 162.56 cm 23.2 kg/m2 70197.97 g [facility] 16:30:22 Date Recorded Body height Body mass index (BMI) Body weight Provider Name and Address Organization Details Last Updated DateTime 01/05/2020 162.56 cm 23.2 kg/m2 78550.97 g Jenny Palacios [facility] 01/05/2020 12:26:03 Date Recorded Body height Body mass index (BMI) Body weight Provider Name and Address Organization Details Last Updated DateTime 11/19/2019 162.56 cm 23.2 kg/m2 07137.97 g Rin Espinal [facility] 11/19/2019 09:36:36 Social History Question Answer Notes LastModified by Organizat ion Details LastModified Time Tobacco Smoking Status [facility] 12/02/2019 10:38:57 Do You Or Have You Ever Used E-cigarettes Or Vape? Never Used Electronic Cigarettes Information not available 12/08/2019 What Was The Date Of Your Most Recent Tobacco Screening? 12/08/2019 [email or web address] Information not available 03/15/2020 How Much Tobacco Do You Smoke? No Information not available 12/08/2019 Sex: Female Functional Status None recorded. Mental Status None recorded. Family History Relationship Description Onset Age of this Age Resolved Age Notes Maternal Grandmother Malignant tumor of esophagus Maternal Grandmother Heart disease Mother Family history of diabetes mellitus Mother Family history of Hypertension Father Malignant tumor of nasal cavity Medical History Condition Response Sexually Transmitted Infection N Diabetes N Other N Bleeding Disorder N High Blood Pressure N Kidney Stones N High Cholesterol N GERD/Acid Reflux N Heart Disease N Cancer Y Depression N Lung Disease N Gynecological HistoryNo gynecological history recorded. Obstetrics History GPAL:G 0 P 0 0 0 0 Past Encounters Encounter ID Performer Location Encounter Start Date Encounter Closed Date Diagnosis/Indication Diagnosis [facility]ED[facility] [id number] [facility] [address] [facility] [facility] [place] [address] 11/19/2019 08:32:45 11/19/2019 15:10:46 Microscopic hematuria 047588178 Nocturia 607476861 Myalgia of pelvic floor 134761107 Female pel hang floor dysfunction 523147022 Pelvic floor tension 709 206605 Pelvic and perineal pain 485217014 [id number] Yu Galaviz MD [address] [address] 12/08/2019 16:29:07 12/28/2019 11:52:00 Microscopic hematuria 835996616 Nocturia 302737402 Myalgia of pelvic floor 270813054 Female pel hang floor dysfunction 528282690 Pelvic floor tension 709 875066 Pelvic and perineal pain 145025576 Female str ess incontinence 78164880 [id number] Yu Galaviz MD [address] [address] 01/05/2020 12:25:11 01/15/2020 12:29:05 Microscopic hematuria 607183254 Nocturia 963925458 Myalgia of pelvic floor 953925276 Female pel hang floor dysfunction 803089861 Pelvic floor tension 709 867849 Pelvic and perineal pain 046686916 Female str ess incontinence 50172655 Health Concerns Section Related Observation LastModified by Organization Detai ls LastModified Time None Recorded Concern Status LastModified by Organization Details LastModified Time None Recorded Advance Directives Directive None Recorded Payers Encounter Date Sequence Insurance Name Policy Number Policy Pom[place] Covered Member ID [place] Member ID Guarantor Name 01/05/2020 1 [place] DOMINGUE[place] [id number] Blancafarhad Ann [id number] Blancafarhad dhillon 12/08/2019 1 [place] [id number] Blanca Ann [id number] Blancafarhad Naidu ees 11/19/2019 1 [place] PATHAKBS [place] [id number] Blanca Ann [id number] Blancafarhad Naidu ees Notes Date Note Type Note Provider Name and Address Organization Details Recorded Time 11/19/2019 text/html HPI Notes: : The patient has 2 complaints. The first is a 10 or more year history of microscopic hematuria. On routine urinalysis she has always been told that there is either a trace or a moderate amount of blood. She did see a urologist at [facility] about 10 years ago and recalls having something that sounds like a cystoscopy performed. Apparently the work-up was negative. In the last 5 years she estimates that she has had 2 or 3 culture documented urinary tract infections. She does not have a history of visible blood within the urine. The second problem is nighttime frequency. About 3 times in recent days she has had urinate anywhere from every 1 to 10 minutes at night. She does not describe pain or burning with urination. She has some pain in her lower back. She is urinating small amounts. This goes on from the time that she tries to go to bed around 10 PM until 4 AM. It is exhausting and bothersome to her. She does have some associated pelvic pain and pressure but she denies painful intercourse. She denies symptoms of prolapse. She has had some leakage with laughing and exercise. This visit was conducted using [employer] video conferencing technology due to the COVID-19 crisis. Prior to conducting our video e-health visit, the patient was apprised of the risks, benefits and alternatives to video visits including but not limited to inadequate image resolution, interrupted video visits due to technological limitations, delays in medical evaluation and treatment due to deficiencies or failures of equipment, failure of security protocols resulting in a breach of privacy of personal medical information and a lack of access to complete medical records resulting in not fully informed decisions. Also, because of the COVID-19 pandemic, it was not possible for the patient to sign the privacy regulations, HIPAA release and assignment of benefits forms. The patient was given the opportunity to ask questions about these policies and gave verbal acknowledgement and approval of these policies as well as to hold this meeting using video technology. Lastly, the patient agreed to allowing their medication history to be pulled from a national pharmacy database to facilitate and coordinate their care. Esteban somers [facility] 11/19/2019 11:09:45 12/08/2019 text/html HPI Notes: Seen with Dr Lambert initially virtually on 11/19/19: The patient has 2 complaints. The first is a 10 or more year history of microscopic hematuria. On routine urinalysis she has always been told that there is either a trace or a moderate amount of blood. She did see a urologist at [facility] about 10 years ago and recalls having something that sounds like a cystoscopy performed. Apparently the work-up was negative. In the last 5 years she estimates that she has had 2 or 3 culture documented urinary tract infections. She does not have a history of visible blood within the urine. The second problem is nighttime frequency. About 3 times in recent days she has had urinate anywhere from every 1 to 10 minutes at night. She does not describe pain or burning with urination. She has some pain in her lower back. She is urinating small amounts. This goes on from the time that she tries to go to bed around 10 PM until 4 AM. It is exhausting and bothersome to her. She does have some associated pelvic pain and pressure but she denies painful intercourse. She denies symptoms of prolapse. She has had some leakage with laughing and exercise. ------- 12-08-19 1. Noted with microhematuria on labs in august no visible blood 2. nocturia/oab/CLEMENTINA started VV with Dr Lambert what bothers her need to void multiple times to help empty her bladder at night--this is what drives her to come in. feels that she has need to void and has hesitancy. DF 5-8 times no pain with IC using vaginal valium --at night; has not needed to get up at night. denies more anxiety/stress. (1 vd and 2 c/s) mild clementina uses pads no pads, sometimes changes underwear--not too bad has a post void gtt at times as well was told to posture to help empty at times 3. hx of UTIs none this year Yu Galaviz MD [address] [facility],[address], [place], [address], [facility] 12/08/2019 17:29:59 01/05/2020 text/html HPI Notes: Seen with Dr Lambert initially virtually on 11/19/19: The patient has 2 complaints. The first is a 10 or more year history of microscopic hematuria. On routine urinalysis she has always been told that there is either a trace or a moderate amount of blood. She did see a urologist at [facility] about 10 years ago and recalls having something that sounds like a cystoscopy performed. Apparently the work-up was negative. In the last 5 years she estimates that she has had 2 or 3 culture documented urinary tract infections. She does not have a history of visible blood within the urine. The second problem is nighttime frequency. About 3 times in recent days she has had urinate anywhere from every 1 to 10 minutes at night. She does not describe pain or burning with urination. She has some pain in her lower back. She is urinating small amounts. This goes on from the time that she tries to go to bed around 10 PM until 4 AM. It is exhausting and bothersome to her. She does have some associated pelvic pain and pressure but she denies painful intercourse. She denies symptoms of prolapse. She has had some leakage with laughing and exercise. 12-08-19 1. Noted with microhematuria on labs in august no visible blood 2. Nocturia/oab/CLEMENTINA started VV with Dr Lambert what bothers her need to void multiple times to help empty her bladder at night--this is what drives her to come in. feels that she has need to void and has hesitancy. DF 5-8 times no pain with IC using vaginal valium --at night; has not needed to get up at night. denies more anxiety/stress. (1 vd and 2 c/s) mild clementina uses pads no pads, sometimes changes underwear--not too bad has a post void gtt at times as well was told to posture to help empty at times 3. hx of UTIs none this year 01-05-2020 CT urogram (CDI) negative; here for cystoscopy. has been going to PT at [facility], has alot of pain near c/s scar. has only gone 1 time and doing home things. has not started internal work doing kegels sleeping better stopped vaginal valium, sleeping ok. using melatonin 10mg before bed. no issues at night now. currently no bladder concerns. Yu Galaviz MD [address] [facility],[address], [place], [address], [facility] 01/05/2020 12:46:37 OBGyn Episode No OBEpisode recorded.
--- OUTSIDE RECORDS SUMMARY | 2023-07-15 14:35 | XMS_ITS | Data Portability ---
Author Name Unknown Address [address] [place] [id number] Phone [phone] Organization [place] - [facility], Main Office Address [address] [facility] [address] [place] [id number] Assessment No assessment recorded. Plan of Treatment Reminders Order Date Submit Date Provider Last Modified By Organization Details Last Modified Time Details Appointments None recorded. Lab unlisted lab - chol+Hb A1C+HDL-23 [id number] 2020 021 [email or web address] [facility], [address] [place] [address], [place], [address], 11:35:19 Referral None recorded. Procedures None recorded. Surgeries None recorded. Imaging None recorded. Medication Orders None recorded. Patient TargetsNo targets recorded. Patient InstructionsNo instructions recorded. Reason for Referral None Reported. Results Created Date Observation Date Name Description Value Unit Range Abnormal Flag LastModifiedBy Organization Detail LastModifiedTime 01/18/20 16 01/19/2016 hemog lobin A1C hemoglobin A1C 5.3 % 4.8-5. 6 [place], [address] 10/16/2016 04:01:21 01/18/20 16 01/19/2016 LDL, direc t, serum LDL chol. 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 (direct) 170 mg/dL 0-99 above high normal Not Available [facility] ([place] [facility]) [address] [facility], [place], [address], 02/02/2017 06:15:10 01/31/20 17 02/02/2017 LDL, serum comment: inpatient auditor Not Available [facility] ([place] [facility]) [address] [facility], [place], [address], 02/02/2017 06:15:10 01/31/20 17 02/02/2017 HbA1c (hemo globi n A1c), blood hemoglobin A1C 4.6 % 4.8-5. 6 below low normal Not Available [facility] ([place] [facility]) [address] [facility], [place], [address], 02/02/2017 06:15:10 01/22/20 18 01/24/2018 lipid panel , serum cholesterol, total 176 mg/dL 100-19 9 Not Available [facility] ([place] [facility]) [address] [facility], [place], [address], 01/24/2018 09:07:59 01/22/2001/24/2018 lipid panel , serum triglyceride s 70 mg/dL 0-149 Not Available [facility] ([place] [facility]) [address] [facility], [place], [address], 01/24/2018 09:07:59 01/22/20 18 01/24/2018 lipid panel , serum HDL cholesterol 71 mg/dL >39 Not Available [facility] ([place] [facility]) [address] [facility], [place], [address], 01/24/2018 09:07:59 01/22/20 18 01/24/2018 lipid panel , serum VLDL cholesterol gia 14 mg/dL 5-40 Not Available [facility] ([place] [facility]) [address] [facility], [place], [address], 01/24/2018 09:07:59 01/22/20 18 01/24/2018 lipid panel , serum LDL cholesterol calc 91 mg/dL 0-99 Not Available [facility] ([facility]) [address], [place], [address], 01/24/2018 09:07:59 01/22/20 18 01/24/2018 lipid panel , serum comment: inpatient auditor Not Available [facility] ([facility]) [address] [place], [address], 01/24/2018 09:07:59 01/22/20 18 01/24/2018 lipid panel , serum LDL/HDL ratio 1.3 ratio 0.0-3. 2 Not Available [facility] ([facility]) [address] [place], [address], 01/24/2018 09:07:59 01/22/20 18 01/24/2018 HbA1c (hemo globi n A1c), blood hemoglobin A1C 5.0 % 4.8-5. 6 Not Available [facility] ([facility]) [address] [place], [address], 01/24/2018 09:07:59 01/21/2001/22/2019 chol+ HDL-2 75382 -U cholesterol, total 181 mg/dL 100-19 9 Not Available [facility] ([facility]) [address] [place], [address], 01/22/2019 09:07:26 01/21/2001/22/2019 chol+ HDL-2 60318 -U HDL cholesterol 68 mg/dL >39 Not Available [facility] ([facility]) [address] [place], [address], 01/22/2019 09:07:26 01/21/20 19 01/22/2019 chol+ HDL-2 46443 -U T. chol/HDL ratio 2.7 ratio 0.0-4. 4 Not Available [facility] ([facility]) [address] [place], [address], 01/22/2019 09:07:26 01/21/20 19 01/22/2019 HbA1c (hemo globi n A1c), blood hemoglobin A1C 5.1 % 4.8-5. 6 Not Available [facility] ([facility]) [address] [facility], [place], [address], 01/22/2019 09:07:27 02/10/20 21 02/10/2021 LIPID PANEL W/ CHOL/ HDL RATIO cholesterol, total 202 mg/dL 100-19 9 above high normal Not Available [facility] ([facility]) [address] [place], [address], 02/10/2021 10:13:20 02/10/20 21 02/10/2021 LIPID PANEL W/ CHOL/ HDL RATIO triglyceride s 66 mg/dL 0-149 Not Available [facility] ([facility]) [address] [facility], [place], [address], 02/10/2021 10:13:20 02/10/20 21 02/10/2021 LIPID PANEL W/ CHOL/ HDL RATIO HDL cholesterol 99 mg/dL >39 Not Available [facility] ([facility]) [address] [facility], [place], [address], 02/10/2021 10:13:20 02/10/20 21 02/10/2021 LIPID PANEL W/ CHOL/ HDL RATIO VLDL cholesterol gia 12 mg/dL 5-40 Not Available [facility] ([facility]) [address] [facility], [place], [address], 02/10/2021 10:13:20 02/10/20 21 02/10/2021 LIPID PANEL W/ CHOL/ HDL RATIO LDL chol calc ([facility]) 91 mg/dL 0-99 Not Available [facility] ([facility]) [address] [place], [address], 02/10/2021 10:13:20 02/10/20 21 02/10/2021 LIPID PANEL W/ CHOL/ HDL RATIO comment: inpatient auditor Not Available [facility] ([facility]) [address] [facility], [place], [address], 02/10/2021 10:13:20 02/10/20 21 02/10/2021 LIPID PANEL W/ CHOL/ HDL RATIO T. chol/HDL ratio 2.0 ratio 0.0-4. 4 Not Available [facility] ([facility]) [address] [facility], [place], [address], 02/10/2021 10:13:20 02/10/20 21 02/10/2021 HEMOG LOBIN A1C hemoglobin A1C 5.3 % 4.8-5. 6 Not Available [facility] ([facility]) [address] [facility], [place], [address], 02/10/2021 10:13:20 Result Notes None recorded. Problems Name Status Onset Date Resolution Date Notes Provider Name and Address Organization Details Recorded Time Chronic tension-type headache Active 01/28/20 Rajesh Dunaway MD [address] [place] [address],[address], [place], [address], [place] [facility] 01/28/2020 11:06:29 Chronic ulcerative proctitis Active 01/28/20 20 Rajesh Dunaway MD [address] [place] [address],[address], [place], [address], [place] [facility] 01/28/2020 11:09:01 Stress Active 01/28/20 Rajesh Dunaway MD [address] [place] [address],[address], [place], [address], [place] [facility] 01/28/2020 11:25:25 Problem Notes None recorded. Procedures Surgical History Date Name Laterality Status Provider Name and Address Organization Details Recorded Time 12/24/19 Date of Last Pap Smear completed Suzanne [place]ers, [place] [facility] 01/28/2020 10:31:32 04/23/19 18 delivery completed Suzanne [place]ers, [place] [facility] 01/28/2020 10:30:03 03/25/19 12 Breast augmentation w/implt completed Suzanne [place]ers, [place] [facility] 01/28/2020 10:30:44 04/16/19 08 delivery completed Suzannecharan Chaidez null, [facility] 01/28/2020 10:29:46 Imaging Results None recorded. Procedure Notes None recorded. Medical Equipment None Reported. Allergies No known drug allergies Medications Name Sig Start Date Stop Date Status Note LastModified by Organization Details LastModified Time cyclobenzap rine 10 mg tablet TAKE 1 TABLET BY MOUTH THREE TIMES DAILY NEEDED active Not Available Not Available No t Available lorazepam 0.5 mg tablet 01/27 completed Not Available Not Available Not Available methylpredn isolone 4 mg tablets in a dose pack FOLLOW PACKAGE DIRECTION S active Not Available Not Available No t Available sertraline 50 mg tablet TAKE 1 TABLET BY MOUTH EVERY MORNING active Not Available Not Available No t Available diazepam 5 mg tablet TAKE ONE TO TWO TABLETS BY MOUTH PRIOR TO MRI active Not Available Not Available No t Available escitalopra m 10 mg tablet 01/27 completed Not Available Not Available Not Available mirtazapine 7.5 mg tablet 01/27 completed Not Available Not Available Not Available nitrofurant oin monohydrate /macrocryst als 100 mg capsule 01/27 completed Not Available Not Available Not Available Vitals Date Recorded Body height Body mass index (BMI) Body weight Heart rate Systolic blood pressure Diastolic blood pressure Provider Name and Address Organization Details Last Updated DateTime 1 160.02 cm 24.4 kg/m2 56961.7 5 g 68 /min 162 mm[Hg] 98 mm[Hg] Negra Cherry null, [place] [facility] 1 12:31:20 Date Recorded Body height Body mass index (BMI) Body weight Systolic blood pressure Diastolic blood pressure Provider Name and Address Organization Details Last Updated DateTime 01/11/2020 165.1 cm 22.8 kg/m2 54302.15 g 108 mm[Hg] 60 mm[Hg] Venkata Terry null, [place] [facility] 0 10:44:53 Social History Question Answer Notes LastModified by Organizat ion Details LastModified Time Tobacco Smoking Status Never Smoker Suzanne Dm null, [place] [facility] 01/28/2020 10:27:13 What Is Your Level Of Alcohol Consumption? Occasional Information not available 01/28/2020 What Is Your Level Of Caffeine Consumption? None Information not available 01/28/2020 Do You Or Have You Ever Used E-cigarettes Or Vape? 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 With Others Information not available 01/28/2020 Activity Level Moderate Informatio n not available 01/28/2020 Caffeine Consumption None Information not available 01/28/2020 Caffeine Frequency N/A Information not available 01/28/2020 Diet Low Carb Information no t available 01/28/2020 General Stress Level Medium Information not available 01/28/2020 Sleep Habits 8-9 Hrs Information not available 01/28/2020 Spouse's Name Ismael Information not available 01/28/2020 What Was The Date Of Your Most Recent Tobacco Screening? 01/28/2020 Information not available 01/28/2020 What Is Your Relationship Status? Information not available 01/28/2020 Sex: Female Functional Status None recorded. Mental Status None recorded. Family History Nothing Reported. Medical History No medical history recorded. Gynecological History Statement/Question Response Abnormal Pap N Date of Last Pap Smear 12/24/2019 Current Control Method Tubal Ligat ion Obstetrics History GPAL:G 0 P 0 0 0 0 Immunizations Vaccine Type Date Status Provider Name and Address Organization Details Recorded Time influenza, injectable, quadrivalent 01/21/2018 completed Analia Uribe null, [place] [facility] 02/04/2018 10:22:11 influenza, injectable, quadrivalent 01/11/2020 completed Suzanne Chaidez null, [place] [facility] 01/28/2020 10:26:39 Tdap 03/25/2016 completed Suzanne somers, [place] [facility] 01/28/2020 10:44:24 Past Encounters Encounter ID Performer Location Encounter Start Date Encounter Closed Date Diagnosis/Indication Diagnosis SNOMED-CT Code [id number] Rajesh Dunaway MD [address] ,[address] [place] [address] 01/28/2020 10:23:53 01/28/2020 13:19:20 Adult health examination [id number] Venkata Terry [address] [place] [address] 01/28/2020 10:44:20 01/28/2020 10:45:42 [id number] Negra Carey [facility] Leonidas [address] [place] [address] 02/09/2021 17:10:03 02/13/2021 12:33:45 Adult health examination [id number] Health Concerns Section Related Observation LastModified by Organization Detai ls LastModified Time None Recorded Concern Status LastModified by Organization Details LastModified Time None Recorded Advance Directives Directive None Recorded Payers Encounter Date Sequence Insurance Name Policy Number Policy Pompa Covered Member ID Pompa Member ID Guarantor Name 02/09/2021 [employer] (MOVED-BILLED ) [id number] Blancafarhad Ann [id number] 01/28/2020 [employer] (MOVED-BILLED ) [id number] Blanca Fabrizio Ann [id number] 01/11/2020 [employer] (MOVED-BILLED ) [id number] Blanca Fabrizio Campoverde- Seth [id number] Notes Date Note Type Note Provider Name and Address Organization Details Recorded Time 01/28/2020 text/html HPI Notes: complete biometric requirements for points. She has a pcp. She completed a physical with pcp 12/2019. Labs completed 12/2019/km Pt seen at [facility]. Pt is a remote employee. Lives in [place]. Started on zoloft at recent OV with PCP for stress. Has been on this in the past. Has follow up with PCP coming up. Rajesh Dunaway MD [address] [facility],[address], [place], [address], [place] [facility] 01/28/2020 11:58:48 OBGyn Episode No OBEpisode recorded.
--- NOTE | 2023-07-15 14:40 | MM_ITS ---
Patient: ORLANDO KHAN Facility:?[facility] Patient ID:?[id number] Site Patient ID:?[id number]. Site :?1980 Study:?XRay-Breast Bilateral 3D W/CAD-07/15/2023 3:27:12 PM Ordering Physician:Juliane Bates Final Report: BILATERAL SCREENING MAMMOGRAM WITH COMPUTER-AIDED DETECTION AND TOMOSYNTHESIS TECHNIQUE: CC and MLO views were obtained. These mammographic images have been obtained using full-field digital technique. These mammographic images were interpreted with the benefit of computer-aided detection. Breast tomosynthesis was used in this interpretation. COMPARISON FILM: 07/09/22, 07/03/22. FINDINGS: The breasts are heterogeneously dense, which may obscure small masses. IMPRESSION: There is no radiographic evidence for malignancy. ASSESSMENT: BI-RADS Category 2: Benign RECOMMENDATION: Routine screening mammogram in 1 year. A lay language report of this examination will be provided to the patient. AIDA HANLEY M.D. Diagnostic Radiologist [email or web address] POLLY/armani D& Transcribed: 3:[address]/Dictated by: Aida Hanley MD @ 07/16/2023 12:27:00 PM Signed by:?Aida Hanley MD @07/16/2023 9:34:34 PM (Electronic Signature)
== END 2023-07-15 14:32 | disposition home or self-care (01) ==
LOC: MAMMO 14:32
PROVIDERS: PCP Physician Assistant Medical; Visit Provider Obstetrics & Gynecology
DX: Z12.31 Encounter for screening mammogram for malignant neoplasm of breast (principal); R92.2 Inconclusive mammogram
CPT/HCPCS: 77063; 77067

== ENCOUNTER 2023-12-19 17:23 | Outpatient (CLI) | payer OTHER, MEDICAID, SELFPAY ==
--- OUTSIDE RECORDS SUMMARY | 2023-12-20 13:04 | XMS_ITS | Clinical Summary ---
Author Organization [employer] [facility] Address [place], [place] [address] Care Team Providers Care Senior Solutions Architect Name Role Phone Clin, [facility] Primary [facility] Pro vider Allergies No known active allergies Medications Medication Sig Dispensed Refills Start Date End Date Status propranoloL (INDERAL) 40 mg tablet Take 40 mg by mouth. FOR ANXIETY 12/13/2022 Active buPROPion 75 mg tablet Take 75 mg by mouth once daily. 08/29/2023 Active traZODone (DESYREL) 50 mg tablet Take 50 mg by mouth at bedtime if needed for Sleep. 08/29/2023 Active Active Problems Problem Noted Date Diagnosed Date Status post tubal ligation 08/15/2023 Panic attacks 08/15/2023 Migraine 08/15/2023 Menorrhagia 08/15/2023 Leukopenia 08/15/2023 Insomnia 08/15/2023 History of cervical dysplasia 08/15/2023 Depression 08/15/2023 Anxiety 08/15/2023 ADHD 08/15/2023 Chronic ulcerative proctitis without complicatio ns 07/21/2021 Sleep difficulties 05/22/2021 Stress 07/01/2019 Relational problem 08/20/2014 Health Maintenance Overview (08/08/2011): Last pap 09/909 normal , cholesterol and FG were normal in 09/30, Tdap on 10/04/08, Resolved Problems Problem Noted Date Diagnosed Date Resolved Date Post-viral cough syndrome 05/11/2013 Chronic tension headaches 04/02/2011 Anal fissure 11/22/2008 10/07/2009 Overview (11/22/2008): Since 2006 Oral ulcer 11/22/2008 08/08/2011 Overview (11/22/2008): Chronic recurrent, biopsy in 08/31 was benign, negative for herpes virus. Immunizations Name Administration Dates Next Due COVID-19 vaccine (Moderna 100mcg/0.5mL) PF, MDV 09/12/2020,08/12/2020 COVID-19 vaccine (Gdd Hcanalytics-Bio NTech 30mcg/0.3mL) PF, MDV 03/22/2021 Influenza Virus, Unspecified 01/11/2020, 01/21/2018,01/01/2013,2011,11/22/2010,01/01/2009,01/20/2008,1 Influenza, IIV3 (Age >=3 years) 01/01/2009 Influenza, IIV4 02/22/2022,,01/11/2020,2018,12/26/2018(Deferred: Patient Refused),12/31/2016 Influenza,LAIV4 Live Intrana clarisse (Flumist) [...] 1 Edson Other Son 2 Varinder Beckwidth Weidm sandra syndrome Relation Name Status Comments Daughter Alive Father Alive Maternal Grandfather Maternal Grandmother Mother Alive Paternal Grandfather Paternal Grandmother Sister 1 Susana Sister 2 Heidy Son 1 Edson Alive Son 2 Varinder Alive Social History Tobacco Use Types Packs/Day Years Used Date Smoking Tobacco: Never Passive Smoke Exposure: Never Smokeless Tobacco: Never Tobacco Cessation:Counseling Given: Not Answered Alcohol Use Standard Drinks/Week Comments Yes 0 (1 standard drink = 0.6 oz pur e alcohol) Occasional PHQ-2 Answer Date Recorded PHQ-2 TOTAL SCORE 0 06/21/2023 Social Connections Answer Date Recorded Frequency of Communication with Friends and Fami ly 0 08/15/2023 Financial Resource Strain Answer Date R ecorded Difficulty of Paying Living Expenses 3 08/15/2023 Difficulty of Paying Living Expenses Not on file 08/15/2023 Food Insecurity Answer Date Recorded Worried About Running Out of Food in the Last Ye ar 1 08/15/2023 Transportation Needs Answer Date Record ed Lack of Transportation (Medical) 1 08/15/2023 Housing Stability Answer Date Recorded Unable to Pay for Housing in the Last Year 1 08/15/2023 Sex and Gender Information Value Date Recorded Sex Assigned at Not on file Gender Identity Not on file Sexual Orientation Not on file Obstetrics History Para Term AB IAB SAB Ectopic Multiple Livin g Live Births 2 2 2 0 0 0 0 0 0 2 2 Date Outcome GA Total Labor Labor/2nd/3rd Weight Sex Type Anes PTL Shannan A1 A5 Name Clin 006 Term F Living Delivery Location:[place] 008 Term M Living Delivery Location:[place] Last Filed Vital Signs Vital Sign Reading Time Taken Comments Blood Pressure 94/66 09/03/2023 9:03 AM CDT Pulse 96 09/03/2023 9:03 AM CDT Temperature 37.7 ??C (99.8 ??F) 09/03/2023 9 :03 AM CDT Ibuprofen at 0800 Respiratory Rate 18 08/20/2023 9:44 AM CDT Oxygen Saturation 96% 09/03/2023 9:0 3 AM CDT Inhaled Oxygen Concentration - - Weight 65.8 kg (145 lb) 09/03/2023 9:03 AM CDT per patient Height 165.1 cm (5' 5) 08/20/2023 8:57 AM CDT Body Mass Index 24.13 08/20/2023 8:57 AM CDT Plan of Treatment Health Maintenance Due Date Last Done Comments HIV for age 15-65 1996 Hepatitis C screening for age 18-79 1999 COVID-19 vaccine series ( season) 2023 03/22/2021, 09/12/2020, 08/12/2020 Influenza for age 9-49 11/24/2023 , 12/26/2020, 01/11/2020, Additional history exists BMI (ht and wt [...] Procedure Name Priority Date/Time Associated Diagnosis Comments HPV HIGH RISK Routine 02/22/2022 4:03 PM STUDENT LIFE COORDINATOR from Last 3 Months or Most Recently Relevant to Health Maintenance Results * HPV HIGH RISK (02/22/2022 4:03 PM STUDENT LIFE COORDINATOR) TYPE 16 Negative Negative 02/27/2022 3:45 PM STUDENT LIFE COORDINATOR [facility] TYPE 18 Negative Negative 02/27/2022 3:45 PM STUDENT LIFE COORDINATOR [facility] OTHER HIGH RISK TYPES Negative Negative 02/27/2022 3:45 PM STUDENT LIFE COORDINATOR [facility] Other (Cervical) 02/22/2022 4:03 PM STUDENT LIFE COORDINATOR 02/26/2022 1:06 PM STUDENT LIFE COORDINATOR Narrative [facility] - 02/27/2022 3:45 PM STUDENT LIFE COORDINATOR HPV types 16, 18, 31, 33, 35, 39, 45, 51, 52, 56, 58, 59, 66 and 68 DNA were undetectable or below the pre-set threshold. Methodology: Chelsea John 4800 HPV Test Kate Oliver NP MICROBIOLOGY [facility] [address] [place] [address], [place] from Last 3 Months or Most Recently Relevant to Health Maintenance Advance Directives * Full Code (Latest Code Status on File) Date Activated Date Inactivated Comments 08/20/2023 8:48 AM 08/20/2023 12:09 PM Please veri fy with the patient. Question Answer Comments Code Status Discussion: Unable to Assess Preferences, Provider to review later Care Teams Senior Solutions Architect Relationship Specialty Start Date End Date Clin, [facility] [address] [place] [address] PCP - General 05/30/15
== END 2023-12-19 17:24 | disposition home or self-care (01) ==
LOC: NFLDREF 12-20 13:02
PROVIDERS: PCP Physician Assistant Medical; Referring Provider Physician Assistant Medical; Visit Provider Physician Assistant
DX: N39.0 Urinary tract infection, site not specified (principal); B96.20 Unspecified Escherichia coli [E. coli] as the cause of diseases classified elsewhere
CPT/HCPCS: 87086; 87186

== ENCOUNTER 2024-01-13 13:12 | Outpatient (CLI) | payer OTHER, MEDICAID, SELFPAY ==
--- OUTSIDE RECORDS SUMMARY | 2024-01-16 05:56 | XMS_ITS | Continuity of Care Document ---
Author Organization [facility] Address [address] [address] [place] [address] Phone Care Team Providers Care Communication Spec Name Role Phone Maya Solano MD Unavailable [...] Active Procedures Procedure Date Offic/outpt E&m New Mod-hi Advance Directives Directive Yes / No Effective Date File Name No Information Encounters Encounter Description Practice Location Reason(s) For Visit Diagnoses Date Provider Providers Copied on Encounter [facility], [address] [address], [place], [place], [id number], [phone] [facility] No Information 5 Russ Trejo . [address] [place] [address], [address], [id number] , [place]. [phone] Offic/outpt E&m [facility], [address] [address], [place], [place], [id number], [phone] [facility] GI Symptoms or Concerns (chief complaint) Gastroenteritis 5 Russ Trejo . [address] [facility], [address], [id number] , [place]. [phone] Referring Provider: Referral Self, USE FOR SELF REFERRALS. Family History Family Member Type Diagnosis Age [...] colon Payers Payer name Insurance type Covered alliance party ID Authoriza tion(s) [facility] [id number] Social History Type Description Quantity Date Captured Comments Alcohol Use Details Unknown Caffeine Use Details Unknown Tobacco Use Status No Information Smoking Status No Information Sex Female Chief Complaint And Reason For Visit No Information Reason For Referral Reason For Referral No Information History Of Present Illness Encounter [...] No Information Instructions Date Instruction Additional Infor shannan We discussed the pot ential for probiotics [...]
--- OUTSIDE RECORDS SUMMARY | 2024-01-16 05:57 | XMS_ITS | Data Portability ---
Author Organization [place] [facility] Address [address] [place] [address] Assessment No assessment recorded. Plan of Treatment Reminders Order Date Submit Date Provider Last Modified By Organization Details Last Modified Time Details Appointments None recorded. Lab urinalysis, dipstick 2019 020 [facility], [address] [facility], [address], [place], [address], 0 18:39:05 urinalysis, dipstick 2019 020 [facility], [address] [facility], [address], [place], [address], 0 09:44:50 Referral pelvic floor therapy referral - Please call patient to scheduled Pelvic Floor Physical Therapy. Thank you 2019 020 [email or web address] [place], [id number] [place], [place] [address], [address], [place], [address], 0 16:30:18 Procedures None recorded. Surgeries None recorded. Imaging None recorded. Medication Orders compounded medication 2019 020 [facility] [address] [place] [address], [address], 2 10:17:17 Patient TargetsNo targets recorded. Patient Instructions Encounter Date Encounter Id Patient Instructions Last Modified By Organization Details Last Modified Time 11/19/2019 [id number] needs office wyatt t for exam, possible cysto, and decide about upper tract imaging based on micro UA. Explained that benign microscopic hematuria is likely diagnosis, and if work-up confirmed, this should be reassuring. Also needs pelvic floor muscle assessment. In interim, will try hot tub soaks at night and vaginal valium. Gave her contact info for [facility] [email or web address] Not available 11/19/2019 11:07:50 12/08/2019 [id number] Review of chart 6-24 UA micro 3-5 RBC ucx negative HAD MENSES at this shyanne. 1. hx of microhematuria had menses in August; no menses today to have yearly ua micro if continues + consider reval in 3-5 yrs if sees blood to call immediately 2. Pelvic floor tension/nocturia hot tub soaks at night and vaginal valium Not available 12/08/2019 16:46:56 01/05/2020 [id number] Review of chart 6-24 UA micro 3-5 [...] keflex and azo. Not available 01/05/2020 12:45:30 Reason for Referral Pelvic Floor Therapy Referra l for Female stress incontinence Please call patient to scheduled Pelvic Floor Physical Therapy. Thank you Referring Physician: Yu Galaviz, Urology, Encounter Date: 12/08/2019 Results Created Date Observation Date Name Description Value Unit Range Abnormal Flag Note LastModifiedBy Organization Detail LastModifiedTime 12/08/1912/08/2019 urina lysis , dipst ick color-status YELLOW yellow Not Available [facility] [address], [place], [address], 12/10/2019 18:39:05 12/08/1912/08/2019 urina lysis , dipst ick clarity-stat us CLEAR clear Not Available [facility] [address] [facility] [address], [place], [address], 12/10/2019 18:39:05 12/08/1912/08/2019 urina lysis , dipst ick glucose-stat us NEGATI VE mg/dL negati ve Not Available [facility] [address] [place] [address] [address], [place], [address], 12/10/2019 18:39:05 12/08/19 20 12/08/2019 urina lysis , dipst ick bilirubin-ur ine NEGATI VE negati ve Not Available [facility] [address] [place] [address] [address], [place], [address], 12/10/2019 18:39:05 12/08/19 20 12/08/2019 urina lysis , dipst ick ketones-stat us 80 mg/dL negati ve abnormal Not Available [facility] [address] [place] [address] [address], [place], [address], 12/10/2019 18:39:05 12/08/19 20 12/08/2019 urina lysis , dipst ick SG-status >=1.03 0 1.00-1 .03 Not Available [facility] [address] [place] [address] [address], [place], [address], 12/10/2019 18:39:05 12/08/19 20 12/08/2019 urina lysis , dipst ick pH-status 6.5 5.00-8 .00 Not Available [facility] [address] [place] [address] [address], [place], [address], 12/10/2019 18:39:05 12/08/19 20 12/08/2019 urina lysis , dipst ick protein-stat us NEGATI VE mg/dL negati ve Not Available [facility] [address] [place] [address] [address], [place], [address], 12/10/2019 18:39:05 12/08/19 20 12/08/2019 urina lysis , dipst ick urobilinogen -status 0.2 E.U./ dL 0.2 E.U./d L Not Available [facility] [address] [facility] [address], [place], [address], 12/10/2019 18:39:05 12/08/1912/08/2019 urina lysis , dipst ick nitrites-sta tus NEGATI VE negati ve Not Available [facility] [address] [place] [address] [address], [place], [address], 12/10/2019 18:39:05 12/08/1912/08/2019 urina lysis , dipst ick blood-urine SMALL negati ve abnormal Not Available [facility] [address] [place] [address] [address], [place], [address], 12/10/2019 18:39:05 12/08/1912/08/2019 urina lysis , dipst ick leuko-status NEGATI VE negati ve Not Available [facility] [address] [place] [address] [address], [place], [address], 12/10/2019 18:39:05 12/08/1912/08/2019 urina lysis , dipst ick specimen type VOIDED Not Available [facility] [address] [place] [address] [address], [place], [address], 12/10/2019 18:39:05 12/08/1912/08/2019 urina lysis , dipst ick performed by TALAT Mckeon Not Available [facility] [address] [place] [address] [address], [place], [address], 12/10/2019 18:39:05 01/05/2001/05/2020 urina lysis , dipst ick color-status Yellow yellow Not Available [facility] [address] [place] [address] [address], [place], [address], 01/06/2020 09:44:50 01/05/2001/05/2020 urina lysis , dipst ick clarity-stat us Clear clear Not Available [facility] [address] [facility] [address], [place], [address], 01/06/2020 09:44:50 01/05/2001/05/2020 urina lysis , dipst ick glucose-stat us Negati ve mg/dL negati ve Not Available [facility] [address] [place] [address] [address], [place], [address], 01/06/2020 09:44:50 01/05/2001/05/2020 urina lysis , dipst ick bilirubin-ur ine Negati ve negati ve Not Available [facility] [address] [place] [address] [address], [place], [address], 01/06/2020 09:44:50 01/05/2001/05/2020 urina lysis , dipst ick ketones-stat us 15 mg/dL negati ve abnormal Not Available [facility] [address] [place] [address] [address], [place], [address], 01/06/2020 09:44:50 01/05/2001/05/2020 urina lysis , dipst ick SG-status >=1.03 0 1.00-1 .03 Not Available [facility] [address] [place] [address] [address], [place], [address], 01/06/2020 09:44:50 01/05/2001/05/2020 urina lysis , dipst ick pH-status 7.0 5.00-8 .00 Not Available [facility] [address] [place] [address] [address], [place], [address], 01/06/2020 09:44:50 01/05/2001/05/2020 urina lysis , dipst ick protein-stat us Negati ve mg/dL negati ve Not Available [facility] [address] [place] [address] [address], [place], [address], 01/06/2020 09:44:50 01/05/2001/05/2020 urina lysis , dipst ick urobilinogen -status 0.2 E.U./ dL 0.2 E.U./d L Not Available [facility] [address] [place] [address] [address], [place], [address], 01/06/2020 09:44:50 01/05/2001/05/2020 urina lysis , dipst ick nitrites-sta tus Negati ve negati ve Not Available [facility] [address] [place] [address], [place], [address], 01/06/2020 09:44:50 01/05/2001/05/2020 urina lysis , dipst ick blood-urine Small negati ve abnormal Not Available [facility] [address] [place] [address], [place], [address], 01/06/2020 09:44:50 01/05/2001/05/2020 urina lysis , dipst ick leuko-status Negati ve negati ve Not Available [facility] [address] [place] [address] [address], [place], [address], 01/06/2020 09:44:50 01/05/2001/05/2020 urina lysis , dipst ick specimen type Voided Not Available [facility] [address] [place] [address] [address], [place], [address], 01/06/2020 09:44:50 01/05/2001/05/2020 urina lysis , dipst ick performed by Talat Mckeon Not Available [facility] [address] [place] [address] [address], [place], [address], 01/06/2020 09:44:50 12/14/19 20 12/11/2019 CT ABD wo&W & pelv wo&W (no oral cont) No observ ation record ed. [email or web address] [facility] [address], [place], [address], 01/05/2020 12:45:36 Result Notes None recorded. Procedures Surgical History Date Name Laterality Status Provider Name and Address Organization Details Recorded Time 0 Cystoscopy- female completed Yu Galaviz MD [address] [place] [address],[address], [place], [address], [facility] 01/05/2020 12:44:56 0 In and Out Catheterization - female completed Yu Galaviz MD [address] [place] [address],[address], [place], [address], [facility] 12/08/2019 16:53:04 0 Colonoscopy completed Julissa [facility] 12/02/2019 10:39:18 section completed Julissa Franco [facility] 12/02/2019 10:39:26 Tubal Ligation completed Julissa Franco [facility] 12/02/2019 10:39:38 [facility] 10:39:46 breast procedure completed [facility] 12/02/2019 10:40:02 Imaging Results Imaging Date Name Status LastModified by Organiz ation Details LastModified Time 12/11/2019 CT ABD wo&W & pelv wo&W (no oral cont) completed [email or web address] [facility] [place] [address], [place], [address], 01/05/2020 12:45:36 Procedure Notes None recorded. Medical [...] Updated DateTime 12/08/2019 162.56 cm 23.2 kg/m2 50820.97 g Talat Palacios [facility] 12/08/2019 16:30:22 Date Recorded Body height Body mass index (BMI) Body weight Provider Name and Address Organization Details Last Updated DateTime 01/05/2020 162.56 cm 23.2 kg/m2 89479.97 g Talat Palacios [facility] 01/05/2020 12:26:03 Date Recorded Body height Body mass index (BMI) Body weight Provider Name and Address Organization Details Last Updated DateTime 11/19/2019 162.56 cm 23.2 kg/m2 10805.97 g Rin Espinal [facility] 11/19/2019 09:36:36 Social History Question Answer Notes LastModified by Organizat ion Details LastModified Time Tobacco Smoking Status [facility]oker [facility] 12/02/2019 10:38:57 Do You Or Have You Ever Used E-cigarettes Or Vape? Never Used Electronic Cigarettes Information not available 12/08/2019 What Was The Date Of Your Most Recent Tobacco Screening? 12/08/2019 [email or web address] Information not available 03/15/2020 How Much Tobacco Do You Smoke? No Information not available 12/08/2019 Sex: Unknown Functional Status None recorded. Mental Status None recorded. Family History Relationship Description Onset Age of this Age Resolved Age Notes LastModified by Organization Details LastModified Time Maternal Grandmother Malignant tumor of esophagus [email or web address] Not available 2019 10:42:18 Maternal Grandmother Heart disease [email or web address] Not available 2019 10:42:40 Mother Family history of diabetes mellitus [email or web address] Not available 2019 10:42:25 Mother Family history of Hypertension [email or web address] Not available 11/2019 10:43:26 Father Malignant tumor of nasal cavity [email or web address] Not available 11/2019 10:43:12 Medical History Condition Response Other N High Blood Pressure N Kidney Stones N Depression N Lung Disease N GERD/Acid Reflux N Sexually Transmitted Infection N Cancer Y High Cholesterol N Diabetes N Bleeding Disorder N Heart Disease N Gynecological HistoryNo gynecological history recorded. Obstetrics History GPAL:G 0 P 0 0 0 0 Past Encounters Encounter ID Performer Location Encounter Start Date Encounter Closed Date Diagnosis/Indication Diagnosis SNOMED-CT Code Diagnosis ICD10 Code [id number] Esteban Lambert [facility] [address] [facility],[address] [address] 11/19/2019 08:32:45 11/19/2019 15:10:46 Microscopic hematuria 902488479 R31.21 Nocturia 763956787 R35.1 Myalgia of pelvic floor 942668903 M79.18 Female pel hang floor dysfunction 910687364 M99.05 Pelvic floor tension 709 449622 R29.898 Pelvic and perineal pain 816580031 R10.2 [id number] Yu Galaviz MD [address],[facility] [address] [place] [address] 12/08/2019 16:29:07 12/28/2019 11:52:00 Microscopic hematuria 629743161 R31.21 Nocturia 459856716 R35.1 Myalgia of pelvic floor 414355154 M79.18 Female pel hang floor dysfunction 097030348 M99.05 Pelvic floor tension 709 230337 R29.898 Pelvic and perineal pain 781641885 R10.2 Female str ess incontinence 27845067 N39.3 [id number] Yu Galaviz MD [place] [address] [facility],[address] [place] [address] 01/05/2020 12:25:11 01/15/2020 12:29:05 Microscopic hematuria 121058402 R31.21 Nocturia 698795687 R35.1 Myalgia of pelvic floor 359098364 M79.18 Female pel hang floor dysfunction 543408489 M99.05 Pelvic floor tension 709 963394 R29.898 Pelvic and perineal pain 188070936 R10.2 Female str ess incontinence 84955490 N39.3 Health Concerns Section Related Observation LastModified by Organization Detai ls LastModified Time None Recorded Concern Status LastModified by Organization Details LastModified Time None Recorded Advance Directives Directive None Recorded Payers Encounter Date Sequence Insurance Name Policy Number Policy [place] Covered Member ID [place] Member ID Guarantor Name 11/19/2019 1 [place] [id number] Blanca D Nirali- Dewees [id number] Blanca D Nirali-Dew ees 12/08/2019 1 [place] [place] [id number] Blanca D Nirali- Dewees [id number] Blanca D Nirali-Dew ees 01/05/2020 1 [place] [place] [id number] Blanca D Nirali- Dewees [id number] Blanca D Nirali-Dew ees Notes Date Note Type Note Provider Name and Address Organization Details Recorded Time 11/19/2019 text/html HPI Notes: : The patient has 2 complaints. The first is a 10 or more year history of microscopic hematuria. On routine urinalysis she has always been told that there is either a trace or a moderate amount of blood. She did see a urologist at [facility] about 10 years ago and recalls having [...] and exercise. This visit was conducted using [employer] video conferencing technology due to the COVID-19 [...] facilitate and coordinate their care. Esteban somers [facility] 11/19/2019 11:09:45 12/08/2019 text/html HPI Notes: Seen with Dr Lambert initially virtually on 11/19/19: The patient has 2 complaints. The first is a 10 or more year history of microscopic hematuria. On routine urinalysis she has always been told that there is either a trace or a moderate amount of blood. She did see a urologist at [facility] about 10 years ago and recalls having [...] UTIs none this year Yu Galaviz MD [address] [place] [address],[address], [address], [facility] 12/08/2019 17:29:59 01/05/2020 text/html HPI Notes: Seen with Dr Lambert initially virtually on 11/19/19: The patient has 2 complaints. The first is a 10 or more year history of microscopic hematuria. On routine urinalysis she has always been told that there is either a trace or a moderate amount of blood. She did see a urologist at [facility] about 10 years ago and recalls having [...] cystoscopy. has been going to PT at [facility], has alot of pain near c/s scar. has only gone 1 time and doing home things. 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 using melatonin 10mg before bed. no issues at night now. currently no bladder concerns. Yu Galaviz MD [address] [facility],[address], [place], [address], [place] [facility] 01/05/2020 12:46:37 OBGyn Episode No OBEpisode recorded.
--- OUTSIDE RECORDS SUMMARY | 2024-01-16 05:57 | XMS_ITS | Data Portability ---
Author Organization [place] - [facility], Main Office Address [address] [place] [address] Assessment No assessment recorded. Plan of Treatment Reminders Order Date Submit Date Provider Last Modified By Organization Details Last Modified Time Details Appointments None recorded. Lab unlisted lab - chol+Hb A1C+HDL-23 [id number] 2020 021 [email or web address] [facility], [address] [place] [address], [place], [address], 11:35:19 Referral None recorded. Procedures None recorded. Surgeries None recorded. Imaging None recorded. Medication Orders None recorded. Patient TargetsNo targets recorded. Patient InstructionsNo instructions recorded. Reason for Referral None Reported. Results Created Date Observation Date Name Description Value Unit Range Abnormal Flag Note LastModifiedBy Organization Detail LastModifiedTime 02/10/20 21 02/10/2021 LIPID PANEL W/ CHOL/ HDL RATIO cholesterol, total 202 mg/dL 100-19 9 above high normal Not Available [facility] ([facility]) [address] [facility], [place], [address], 02/10/2021 10:13:20 02/10/20 21 02/10/2021 LIPID PANEL W/ CHOL/ HDL RATIO triglyceride s 66 mg/dL 0-149 Not Available [facility] ([facility]) [address] [facility], [place], [address], 02/10/2021 10:13:20 02/10/20 21 02/10/2021 LIPID PANEL W/ CHOL/ HDL RATIO HDL cholesterol 99 mg/dL >39 Not Available [facility]) [address] [facility], [place], [address], 02/10/2021 10:13:20 02/10/20 21 02/10/2021 LIPID PANEL W/ CHOL/ HDL RATIO VLDL cholesterol gia 12 mg/dL 5-40 Not Available [facility] ([facility]) [address] [place], [address], 02/10/2021 10:13:20 02/10/20 21 02/10/2021 LIPID PANEL W/ CHOL/ HDL RATIO LDL chol calc ([facility]) 91 mg/dL 0-99 Not Available 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) [address] [facility], [place], [address], 02/10/2021 10:13:20 02/10/20 21 02/10/2021 LIPID PANEL W/ CHOL/ HDL RATIO T. chol/HDL ratio 2.0 ratio 0.0-4. 4 T. Chol/ HDL Ratio Men Women 1/2 Avg.R isk 3.4 3.3 Avg.R isk 5.0 4.4 2X Avg.R isk 9.6 7.1 3X Avg.R isk 23.4 11.0 Not Available [facility] ([facility]) [address] [place], [address], 02/10/2021 10:13:20 02/10/20 21 02/10/2021 HEMOG LOBIN A1C hemoglobin A1C 5.3 % 4.8-5. 6 Predi abete s: 5.7 - 6.4 Diabe marely: >6.4 Glyce tere contr ol for adult s with diabe marely: <7.0 Not Available [facility] ([facility]) [address] [facility], [place], [address], 02/10/2021 10:13:20 Result Notes None recorded. Problems Name Problem SNOMED Code Status Onset Date Resolution Date Notes Provider Name and Address Organization Details Recorded Time Chronic tension-type headache 619363727 Active Rajesh horta MD [address] [place] [address],[address], [email or web address], [address], [place] [facility] 0 11:06:29 Chronic ulcerative proctitis 64522308 Active Rajesh horta MD [address] [place] [address],[address], [email or web address], [address], [place] [facility] 0 11:09:01 Stress 31473874 Active Rajesh horta MD [address] [place] [address],[address], [email or web address], [address], [place] [facility] 0 11:25:25 Problem Notes None recorded. Procedures Surgical History Date Name Laterality Status Provider Name and Address Organization Details Recorded Time 12/24/19 20 Date of Last Pap Smear completed Suzanne Chaidez [place] [facility] 01/28/2020 10:31:32 04/23/19 18 delivery completed Suzanne Dm [place] [facility] 01/28/2020 10:30:03 03/25/19 12 Breast augmentation w/implt completed Suzanne Chaidez [place] [facility] 01/28/2020 10:30:44 04/16/19 08 delivery completed Suzanne Dm [place] [facility] 01/28/2020 10:29:46 Imaging Results None recorded. Procedure [...] Updated DateTime 1 160.02 cm 24.4 kg/m2 55004.7 5 g 68 /min 162 mm[Hg] 98 mm[Hg] Negra Carey [place] [facility] 1 12:31:20 Date Recorded Body height Body mass index (BMI) Body weight Systolic blood pressure Diastolic blood pressure Provider Name and Address Organization Details Last Updated DateTime 01/11/2020 165.1 cm 22.8 kg/m2 42130.15 g 108 mm[Hg] 60 mm[Hg] Venkata Terry [place] [facility] 0 10:44:53 Social History Question Answer Notes LastModified by Organizat ion Details LastModified Time Tobacco Smoking Status Never Smoker Suzanne somers [place] [facility] 01/28/2020 10:27:13 What Is Your Level Of Alcohol Consumption? Occasional Information not available 01/28/2020 What Is Your Level Of Caffeine Consumption? None Information not available 01/28/2020 Do You Or Have You Ever Used E-cigarettes Or Vape? 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 Information not available 01/28/2020 Sex: Unknown Functional Status None recorded. Mental Status None recorded. Family History Nothing Reported. Medical History No medical history recorded. Gynecological History Statement/Question Response Abnormal Pap N Date of Last Pap Smear 12/24/2019 Current Control Method Tubal Ligat ion Obstetrics History GPAL:G 0 P 0 0 0 0 Immunizations Vaccine Type Date Status Provider Name and Address Organization Details Recorded Time Influenza, split virus, quadrivalent, preservative 01/21/2018 completed Anal[place] [facility] 02/04/2018 10:22:11 Influenza, split virus, quadrivalent, preservative 01/11/2020 completed Suzanne [place] [facility] 01/28/2020 10:26:39 Tdap 03/25/2016 completed Suzanne [place], [place] [facility] 01/28/2020 10:44:24 Past Encounters Encounter ID Performer Location Encounter Start Date Encounter Closed Date Diagnosis/Indication Diagnosis SNOMED-CT Code Diagnosis ICD10 Code [id number] [facility] [address] [place] [address] ,[address] [place] [address] 01/28/2020 10:23:53 01/28/2020 13:19:20 Adult health examination 420986717 Z00.00 [id number] Venkata Terry [address] ,[address] [place] [address] 01/28/2020 10:44:20 01/28/2020 10:45:42 [id number] Negra Lauren [address] [place] [address] 02/09/2021 17:10:03 02/13/2021 12:33:45 Adult health examination 062673660 Z00.00 Health Concerns Section Related Observation LastModified by Organization Detai ls LastModified Time None Recorded Concern Status LastModified by Organization Details LastModified Time None Recorded Advance Directives Directive None Recorded Payers Encounter Date Sequence Insurance Name Policy Number Policy Pompa Covered Member ID Pompa Member ID Guarantor Name 01/11/2020 UNRULYO-JERICA (MOVED-BILLED ) [id number] Blanca Ann [id number] 01/28/2020 MISO-ANTHEM (MOVED-BILLED ) [id number] Blanca Ann [id number] 02/09/2021 MISO-ANTHEM (MOVED-BILLED ) [id number] Blanca Ann [id number] Notes Date Note Type Note Provider Name and Address Organization Details Recorded Time 01/28/2020 text/html complete biometr ic requirements for points. She has a pcp. She completed a physical with pcp 12/2019. Labs completed 12/2019/km Pt seen at [facility]. Pt is a remote employee. Lives in [place]. Started on zoloft at recent OV with PCP for stress. Has been on this in the past. Has follow up with PCP coming up. Rajesh Dunaway MD [address] [facility],[address], [place], [address], [place] [facility] 01/28/2020 11:58:48 OBGyn Episode No OBEpisode recorded.
--- OUTSIDE RECORDS SUMMARY | 2024-01-16 05:57 | XMS_ITS | Clinical Summary ---
Author Organization [employer] [facility] Address [place], [place] [address] Care Team Providers Care Fishing Instructor Name Role Phone Clin, [facility] Primary Care Pro vider Allergies No known [...] (Moderna 100mcg/0.5mL) PF, MDV 09/12/2020,08/12/2020 COVID-19 vaccine ([employer] 30mcg/0.3mL) PF, MDV 03/22/2021 Influenza Virus, [...] file 08/15/2023 Food Insecurity Answer Date Recorded Do you worry your food will run out before you are able to buy more? 1 08/15/2023 Transportation Needs Answer Date Record ed Lack of Transportation (Medical) 1 08/15/2023 Housing Stability Answer Date Recorded What is your housing situation today? 1 08/15/2023 Sex and Gender Information Value [...] Name Clin 006 Term F Living Delivery Location:[place] 008 Term M Living Delivery Location:[place] Last Filed Vital Signs Vital Sign Reading [...] 08/20/2023 8:57 AM CDT Plan of Treatment Upcoming Encounters Date Type Department Care Team (Late st Contact Info) Description 02/26/2024 12:30 PM SURVEY CAD TECHNICIAN Preop Visit [facility] [place] [address] [place] [address] Health Maintenance Due Date Last Done Comments [...] HPV HIGH RISK Routine 02/22/2022 4:03 PM SURVEY CAD TECHNICIAN from Last 3 Months or Most Recently Relevant to Health Maintenance Results * HPV HIGH RISK (02/22/2022 4:03 PM SURVEY CAD TECHNICIAN) TYPE 16 Negative Negative 02/27/2022 3:45 PM SURVEY CAD TECHNICIAN [facility] TYPE 18 Negative Negative 02/27/2022 3:45 PM SURVEY CAD TECHNICIAN [facility] OTHER HIGH RISK TYPES Negative Negative 02/27/2022 3:45 PM SURVEY CAD TECHNICIAN [facility] Other (Cervical) 02/22/2022 4:03 PM SURVEY CAD TECHNICIAN 02/26/2022 1:06 PM SURVEY CAD TECHNICIAN Narrative [facility] - 02/27/2022 3:45 PM SURVEY CAD TECHNICIAN HPV types 16, 18, 31, 33, 35, 39, 45, 51, 52, 56, 58, 59, 66 and 68 DNA were undetectable or below the pre-set threshold. Methodology: Chelsea John 4800 HPV Test Kate Oliver NP [facility] [address] [place] [address], from Last 3 Months or Most Recently Relevant to Health Maintenance Advance Directives * Full Code (Latest Code Status on File) Date Activated Date Inactivated Comments 08/20/2023 8:48 AM 08/20/2023 12:09 PM Please veri fy with the patient. Question Answer Comments Code Status Discussion: Unable to Assess Preferences, Provider to review later Care Teams Fishing Instructor Relationship Specialty Start Date End Date Clin, [facility] [address] [place] [address] PCP - General 05/30/15
== END 2024-01-13 13:13 | disposition home or self-care (01) ==
LOC: NFLDREF 01-16 05:54
PROVIDERS: PCP Physician Assistant Medical; Referring Provider Physician Assistant Medical; Visit Provider Nurse Practitioner Family
DX: N89.8 Other specified noninflammatory disorders of vagina (principal); B37.9 Candidiasis, unspecified
CPT/HCPCS: 87086

== ENCOUNTER 2024-03-11 07:10 | Day surgery (SDC) | payer OTHER, MEDICAID, SELFPAY ==
[2024-03-11] VITALS (18 sets, daily range): BP systolic 91–136; BP diastolic 54–90; PULSE 50–97; RESP 11–20; TEMP 36.3–37; O2SAT 96–100; BMI 25.4
[2024-03-11 08:20] LABS: Ur HCG Qualitative* Negative (Negative)
[2024-03-11 08:27] LABS: Hemoglobin* 13.3 gm/dL (12.0-16.0)
[2024-03-11] MEDS: SODIUM CHLORIDE 0.9 % (FLUSH) 10 ML SYRINGE IVF (08:27)
[2024-03-11] MEDS: 0.9 % SODIUM CHLORIDE 500 ML 500 ML 100 ML IV (10:05)
--- NOTE | 2024-03-11 10:30 | W.PM.NB ---
Nerve Block Nerve Block Time Seen by Provider: 10:20 Date Seen: 03/11/24 Type of block requested by surgeon for post-operative analgesia: TAP Side: bilateral Time out performed: Yes Verification of patient name: Yes Verification of date of : Yes Site marking: site marked Name of person performing procedure: Tayo Continuous monitoring Was continuous monitoring of O2 sat, B/P, quality assurance monitor final, recorded every 15 minutes?: Yes Procedure Checklist: sterile prep, needles and gloves Ultrasound guided. Images saved: Yes Medications given in 5ml increments after negative aspiration: Marcaine %: 0.25 mL: 30 Needle gauge: 20 and Exparel mL: 10 Patient tolerated procedure well: Yes Additional comments: Needle noted between internal oblique and transversus abdominus. Local spread visualized Block Charges Block Charge (with Pro Fee): TAP Bilateral Use of Ultrasound Machine for Block: Yes- US Guidance/pain block
--- NOTE | 2024-03-11 10:31 | W.ANESCHARGE ---
Anesthesia Charges Start Date/Time Anesthesia Start Date: 03/11/24 Anesthesia Start Time: 10:13 Stop Date/Time Anesthesia Stop Date: 03/11/24 Anesthesia Stop Time: 14:08
[2024-03-11] MEDS: BUPIVACAINE 0.25% 30 ML INJECTION (11:00)
--- NOTE | 2024-03-11 11:23 | SUR.OPER ---
Bladder is backfilled with sterile formula early in procedure for visualization of the bladder.
--- NOTE | 2024-03-11 14:02 | W.PM.GYNPROC ---
Procedure Note Date of procedure: 03/11/24 Will [facility] bill your pro fee for this procedure?: Yes Pre-op diagnosis: 1. Dysfunctional uterine bleeding, status post endometrial ablation. 2. Chronic right lower quadrant pain. 3. History of sections x2. Post-op diagnosis: 1. Dysfunctional uterine bleeding, status post endometrial ablation. 2. Chronic right lower quadrant pain. 3. History of sections x2. 4. Extensive intra-abdominal and pelvic adhesions. Procedure: 1. Total laparoscopic hysterectomy. 2. Extensive lysis of adhesions. 3. Bilateral salpingectomies. 4. Diagnostic cystoscopy. Anesthesia: GETA Complications: None. Surgeon: Juliane Davis MD Linux Server Administrator: Cathy Garcia Estimated blood loss (mL): 50 IV fluids (mL): 800 Urine Output (mL): 200 Pathology: specimen obtained, sent to pathology (Uterus, bilateral fallopian tubes.) Condition: stable Disposition: PACU Findings: Extensive intra-abdominal and pelvic adhesions. Uterus was completely adherent from cervix to fundus to the anterior abdominal wall. Bladder nonvisualized as it was encased within the uterine/abdominal wall adhesions. Evidence of prior partial salpingectomies, with absent mid sections of both fallopian tubes. Left distal fallopian tube adherent to abdominal wall. Normal-appearing distal right fallopian tube. Normal-appearing ovaries bilaterally. Cystoscopy findings: Normal-appearing bladder and normal tubal ostia bilaterally. Procedure Description: After obtaining informed consent, the patient was taken to the operating room where general anesthesia was obtained without difficulty. She was prepared and draped in the normal sterile fashion in the low dorsal lithotomy position. A Last catheter was inserted into the bladder and left to gravity drainage. A medium Graves open-sided speculum was introduced into the vagina. The cervix was visualized and grasped along its anterior lip with a single-tooth tenaculum. The uterus was gently sounded. Sound length was found to be 10 cm. The cervix was gently dilated to a #5 dilator. I then placed a medium VCare uterine manipulator. The tenaculum and speculum were removed. The green VCare cup was digitally pressed up against the cervix and then cinched in place with the blue accessory cup. I then changed gloves and my attention was turned to the abdomen. The inferior aspect of the umbilical fold was injected with 0.25% Marcaine plain. A 12 mm transverse incision was then made within the umbilical fold using a scalpel. A direct entry technique was used to place an 11 mm laparoscopic port with CO2 gas set to a 5 mmHg. The trocar was removed leaving the sleeve in place. The CO2 gas flow was turned to high flow to achieve pneumoperitoneum. The 10 mm laparoscope was used then to carefully inspect the abdomen and pelvis with findings noted above. Pictures were taken for documentation purposes. The patient was placed in Trendelenburg positioning. Two additional 11 mm ports were placed in the right and left lower quadrants under direct visualization after first anesthetizing the skin and fascia with 0.25% Marcaine plain. Once the ports were in place, the VCare manipulator was used to elevate the uterus. The ureters were identified bilaterally along their courses in the pelvic sidewalls. The VCare cup was visualized and palpated with a blunt grasper posteriorly, but was nonvisualized and not palpated anteriorly due to the adhesions. Attention was first turned to the adhesions tethering the uterus to the anterior abdominal wall. The extent of the adhesions was delineated by inserting the laparoscope variously through the infraumbilical port and also through the right and left lower quadrant ports. Filmy adhesions were taken down with a laparoscopic scissors. Blunt dissection was also used where indicated. More dense adhesions were isolated, sealed, and transected using the bipolar LigaSure device. The bladder was filled with 200 mL sterile milk to make it more visible so that inadvertent bladder injury could be avoided. Tissue planes were identified as much as possible during the adhesiolysis, and counter traction utilized where feasible. Both the 0 degree and 30 degree 10 mm laparoscopes were utilized in the process. Approximately 90 minutes was spent solely on adhesiolysis. Some of the adhesiolysis was done after transecting the round ligaments on both sides and dissecting the posterior aspect of the broad ligament to the midline on both sides (see next two paragraphs - the order the procedure was simplified for this dictation). The distal right fallopian tube was was elevated with a graspers. The LigaSure device was used to excise the right fallopian tube, which was then removed through the right lower quadrant port. Excellent hemostasis was obtained. The right round ligament was then sealed in a wide swath and transected with the LigaSure. Excellent hemostasis was obtained. The right broad ligament was then opened using the LigaSure anteriorly and posteriorly along the cervix from the right within the confines of the VCare cup. Pressure was maintained on the uterine manipulator the whole time. The right uterine vessels were sealed in a wide swath and transected with the LigaSure, then the tissues over the VCare cup edge on the right side were thinned using the LigaSure to the midline posteriorly and anteriorly so that the fascial layer could be identified. The left distal tube was elevated with a graspers. The LigaSure was used to dissect the tube from the left ovary and infundibulopelvic ligament and from the left pelvic sidewall where it was adhesed. Excellent hemostasis was obtained. The left round ligament was then sealed in a wide swath and transected with the LigaSure. Excellent hemostasis was obtained. The broad ligament was then opened using the LigaSure anteriorly and posteriorly along the cervix from the left within the confines of the VCare cup. Pressure was maintained on the uterine manipulator the whole time. The left uterine vessels were sealed in a wide swath and transected with the LigaSure, then the tissues over the VCare cup edge on the left side were thinned using the LigaSure to the midline posteriorly and anteriorly so that the fascial layer could be identified. Once an adequate dissection was made circumferentially, the LigaSure was removed and the gyrus J-hook used to incise the tissue circumferentially around the cervix within the groove of the VCare cup. Once the dissection was completed circumferentially, I was able to go below and remove the uterine manipulator and the uterus. A sterile glove containing a laparotomy sponge was placed into the vagina to aid in maintaining pneumoperitoneum. The vaginal cuff was reapproximated in a running fashion with a V-Loc suture starting from the right side and running across to the left and then back to the midline where the suture was cut flush with the tissues. The pelvis was copiously irrigated and hemostasis visualized. Preparations were then made for cystoscopy. Fluorescein was administered intravenously along with the IV fluids. The Last catheter was removed. The patient was flattened out. Cystoscopy was performed using sterile normal saline as distending medium. The bladder was carefully inspected and noted to be free of filling defects or suture material. Both ureteral orifices were easily visualized and fluorescein tinged urine jets were noted from both sides. The cystoscope was then removed. The Last catheter was replaced into the bladder. I then changed gloves again and my attention was once again turned to the abdomen. The abdomen and pelvis were again irrigated and inspected for hemostasis. Aries was placed over the vaginal cuff and raw edges for extra hemostasis. All instruments were then removed under direct visualization. Pneumoperitoneum was allowed to escape. The fascia was reapproximated at the umbilicus and in the right and left lower quadrants with figure of X sutures 0 Vicryl. The skin at all 3 port sites was closed in a subcuticular fashion with 4-0 Vicryl. Surgical glue was then placed over the incisions. The patient tolerated the procedure well. Sponge, lap, needle, and instrument counts were reported as correct x2. The patient was taken to the recovery room awake and in stable condition. She did receive 2 g of IV Ancef preoperatively. Uterine weight was 109 g.
--- NOTE | 2024-03-11 14:14 | W.ANESCHARGE ---
Anesthesia Charges Start Date/Time Anesthesia Start Date: 03/11/24 Anesthesia Start Time: 10:13 Stop Date/Time Anesthesia Stop Date: 03/11/24 Anesthesia Stop Time: 14:08
--- NOTE | 2024-03-11 15:35 | PC.NURSE ---
Pt arrived to unit @ 8845. Pt AxOx4. Lap sites CDI, active ice applied. Pt denies nausea. Pt states 2/10 discomfort to the op site and hendrickson but stated tolerating. Pts hendrickson is patent and draining. Pt tolerating ice chips and water. Family at bedside. Call light in reach. LSCTA, VSS on RA.
[2024-03-11] MEDS: LORazepam 2 MG/ML inj 0.5 MG IVP (15:50)
[2024-03-11] MEDS: OXYCODONE 5 MG TABLET PO ×2 (18:02→21:56)
[2024-03-11] MEDS: FAMOTIDINE 20 MG TABLET PO (18:31)
[2024-03-11] MEDS: SIMETHICONE 80 MG TAB.CHEW 160 MG PO ×2 (18:31→21:56)
[2024-03-11] MEDS: KETOROLAC 30 MG/ML inj IVP (20:00)
[2024-03-11] MEDS: ACETAMINOPHEN 500 MG TABLET 1000 MG PO (21:56)
[2024-03-11] MEDS: HYDROmorphone 0.5 mg/0.5 ml inj 0.1 MG IVP (23:58)
[2024-03-12 03:00] VITALS: BP 99/59; PULSE 56; RESP 18; TEMP 36.6; O2SAT 100
[2024-03-12] MEDS: KETOROLAC 30 MG/ML inj IVP (03:00)
--- NOTE | 2024-03-12 06:24 | PC.NURSE ---
End of shift report [id number]: Pleasant and cooperative with cares. Patient reporting increased pain to right upper quadrant, patient ambulating in hallway several time throughout the evening. Abdomen soft, tender to touch. 3 lap sites open to air, no signs of infection. Scant amount of vaginal bleeding. Prefers compression to abdomen with ambulation, patient utilizing compression underwear while in room. At 2330 patient reporting pain 9/10 to right upper quadrant, patient had utilized PRN medications without relief. Call placed to on-call MD Dr. Quiroz and new order for PRN dilaudid 0.1mg now, may repeat in 30 minutes if needed. PRN medication administered and effective for pain. Ice pack to op site.
[2024-03-12 07:00] VITALS: BP 108/61; PULSE 66; RESP 16; TEMP 37; O2SAT 100
[2024-03-12 07:26] LABS: Creatinine* 0.5 mg/dL (0.5-1.5); Est. Creatinine Clearance* 126.57; Estimated Glomerular Filt Rate 120 ml/min
[2024-03-12] MEDS: OXYCODONE 5 MG TABLET PO ×2 (07:57→11:41)
--- NOTE | 2024-03-12 09:31 | P.DS_ITS ---
DS: Providers Provider Time Seen by Provider: 08:15 Date Seen: 03/12/24 Date of admission: 03/11/2024 Primary care physician: Rio Mayes PA-C Admitting Clinician: Juliane Davis MD Attending Physician on discharge: Macrina Wren MD Date of Discharge: 03/12/24 DS: Diagnosis Discharge Diagnosis (1) Dysfunctional uterine bleeding: Status: Acute (2) Status post laparoscopic hysterectomy: Status: Acute [employer]-Discharge Summary Hospital Course Hospital Course Narrative: Patient is a [] year old admitted on [] for []. Indication for surgery: []. Intraoperative findings were notable for []. She had an uncomplicated surgery. Postoperative course has been uneventful. Vitals have been stable. She has remained afebrile. Today, on postoperative day [], she reports the pain is well controlled. She has been able to ambulate Without difficulty. She is tolerating regular diet. She is passing flatus. Last catheter has been removed, and she is voiding without difficulty. Time Spent with Patient Time attestation: Total time spent providing and/or coordinating discharge services: [employer] - Exam Physical Exam: Vital signs: Temp Pulse Resp BP Pulse Ox O2 Del Method 98.6 F 66 16 108/61 100 Room Air 03/12/24 07:00 03/12/24 07:00 03/12/24 07:00 03/12/24 07:00 03/12/24 07:00 03/12/24 07:00 Narrative: General: Pleasant, woman in no acute distress. Vital signs: Included in her electronic medical record. Heart: Regular rate and rhythm without gallop or murmur. Chest: Clear to auscultation bilaterally Abdomen: Soft, nontender, nondistended with normal bowel sounds throughout. No CVA or flank tenderness. Incisions: All clean, dry and intact with sutures and skin adhesive gel Extremities: No pain or edema [employer] - DS: Data Data Completed and Pending Labs on day of discharge: Labs from last 24 hours 03/12/24 03/11/24 05:55 08:09 Hgb 11.0 L Creatinine 0.5 Estimated Creat Clear 126.57 Estimated GFR 120 Blood Type A Negative Antibody Screen NEGATIVE Procedures Procedures: Procedures Operation Date: 03/11/24 09:00 Actual Procedure Side Surgeon p Total Laparoscopic Hysterectomy Extensive lysis of adhesions, Bilateral Salpingectomy, Diagnostic Cystoscopy Juliane Davis MD Discharge Plan Discharge Disposition: Home w/ Parent or Adult Discharging Surgeon: Macrina Wren Follow-Up Appointment: Dr. Davis, [facility], March 31 @ 11:15 am Prescriptions: New ibuprofen 600 mg tablet 600 mg PO QID PRNQty: 30 0RF docusate sodium 100 mg tablet 100 mg PO BID PRNQty: 100 0RF oxycodone 5 mg tablet 5 mg PO TID PRN (Reason: pain) Qty: 20 0RF Continued propranolol 40 mg tablet 40 mg PO BID PRN (Reason: anxiety) Qty: 60 0RF Activity Level: Other Discharge Diet: Regular Patient Instructions: Laparoscopic Hysterectomy (DC) Additional Instructions: ACTIVITY RESTRICTIONS: Nothing vaginally for 6 weeks: no tampons/intercourse No driving while taking narcotic pain medication during the day. 1-2 weeks. Lifting restriction: Maximum of 20 pounds for 4 weeks. High impact or core exercises: 3 weeks. Submerge the incisions in water (bath/pool/george): 2 weeks. Off of work/school for a minimum of 4 weeks NO RESTRICTIONS for: Walking Going up/down stairs Showering Being the passenger in a motor vehicle SYMPTOMS TO REPORT TO YOUR DOCTOR: Bleeding that is red, like a moderate period Passing clots larger than the size of a golf ball Pain not relieved by prescribed medication Fever above 100.4 degrees Fahrenheit A foul vaginal odor Decrease in urination or painful, frequent urinating Chest pain Shortness of breath Tenderness or pain with redness and/swelling in the calf(s) of your leg Follow-up Appointments: 1. [facility] 2[facility]3 [facility] for an incision check. 2. A 6 week postop visit to verify that the vaginal cuff is well-healed. For pain: Alternate ibuprofen 600mg with 2 tablets of ES Tylenol (1,000mg) every 3 hours. Add oxycodone up to 3 times a day if needed. Follow-up: Rio Mayes PAKameronC [Primary Care Provider] - Juliane Davis MD [Staff Physician] - 03/31/24 11:15 am Discharge Orders: Discharge Order (Routine); Ordered 12/19/24 Ordered By: aMcrina Wren
[2024-03-12] MEDS: SIMETHICONE 80 MG TAB.CHEW 160 MG PO (10:53)
[2024-03-12 10:58] VITALS: BP 114/76; PULSE 70; RESP 16; TEMP 36.9; O2SAT 100
[2024-03-12] MEDS: ACETAMINOPHEN 500 MG TABLET 1000 MG PO (11:41)
--- NOTE | 2024-03-12 12:17 | PC.NURSE ---
Pt discharged @ 1213 via ambulation, accompanied by . Pt is AxOx4. Pain controlled. No nausea present. Discharge forms signed. Belongings form signed. IV removed. Op sites open to air CDI. Final room check complete.
== END 2024-03-12 12:13 | disposition home or self-care (01) ==
LOC: OR 07:11 → MEDSURG 07:13
PROVIDERS: PCP Physician Assistant Medical; Visit Provider Obstetrics & Gynecology
PROC: 0UT94ZZ Resection of Uterus, Percutaneous Endoscopic Approach (ICD-10-PCS; CPT 58571; principal; 2024-03-11 08:45)
DX: N92.1 Excessive and frequent menstruation with irregular cycle (principal); N93.8 Other specified abnormal uterine and vaginal bleeding; N73.6 Female pelvic peritoneal adhesions (postinfective); G89.29 Other chronic pain; R10.31 Right lower quadrant pain; K66.0 Peritoneal adhesions (postprocedural) (postinfection); G89.18 Other acute postprocedural pain
CPT/HCPCS: 58571; 49329; 00840; 36415; 64488; 76942; 81025; 82565; 85018; 86850; 86900; 86901; 88307; A4314; A9270; C9290; J0665; J1100; J1171; J1885; J2060; J2250; J2405; J2704; J2710; J3010; J3475; J3490; J7030

== ENCOUNTER 2024-07-30 18:47 | Outpatient (CLI) | payer OTHER, MEDICAID, SELFPAY | END 2024-07-30 18:48 | disposition home or self-care (01) | LOC: NFLDREF 08-11 07:16 | PROVIDERS: PCP Physician Assistant Medical; Referring Provider Physician Assistant Medical; Visit Provider Family Medicine | DX: R30.0 Dysuria (principal) | CPT/HCPCS: 87086 ==

== ENCOUNTER 2024-07-31 13:04 | Outpatient (CLI) | payer OTHER, MEDICAID, SELFPAY ==
--- NOTE | 2024-07-31 13:00 | CRLHL7_ITS ---
For Patients: As a result of the Century Cures Act, medical imaging exams and procedure reports are released immediately into your electronic medical record. You may view this report before your referring provider. If you have questions, please contact your health care provider. INDICATION: BILATERAL SCREENING MAMMOGRAM, ASYMPTOMATIC 44 Y/O FEMALE COMPARISON: 07/15/2023, 07/03/2022 TECHNIQUE: Digital mammogram in CC and MLO projections including computer-aided detection (CAD) and tomosynthesis. BREAST COMPOSITION: The breasts are heterogeneously dense, which may obscure small masses. FINDINGS: No suspicious findings. ASSESSMENT: BI-RADS 2 Benign RECOMMENDATION: Annual screening mammogram. A lay language report of this examination will be provided to the patient. Dictated by: Luke Zheng MD @ 08/03/2024 12:20:05 (Electronically Signed)
== END 2024-07-31 13:05 | disposition home or self-care (01) ==
LOC: MAMMO 13:07
PROVIDERS: PCP Physician Assistant Medical; Visit Provider Obstetrics & Gynecology
DX: Z12.31 Encounter for screening mammogram for malignant neoplasm of breast (principal); R92.333 Mammographic heterogeneous density, bilateral breasts; Z98.82 Breast implant status
CPT/HCPCS: 77063; 77067